=== PATIENT | male | born 1940 | race Caucasian/White ===

== ENCOUNTER 2017-01-15 10:44 | Inpatient (IN) | payer MEDICARE ==
[2017-01-15] MEDS ORDERED: Morphine INJ* 2 MG/ML 1 ML SYRINGE IM ONE (12:00)
[2017-01-15] MEDS ORDERED: Acetaminophen TAB* 325 MG PO ONE (12:00)
[2017-01-15] MEDS ORDERED: Carbidopa/Levodop 25/100 MG TAB(*) PO ONE (13:00)
[2017-01-15] MEDS ORDERED: Pramipexole TAB* 0.125 MG PO ONE (13:00)
--- NOTE | 2017-01-15 13:19 | RAD ---
Indication: Right hip pain after fall. 2 views of the right hip and an AP view of the pelvis demonstrates degenerative changes of the right hip. Pelvic ring is intact. Multiple prostate seeds are noted. IMPRESSION: Degenerative changes of the right hip. Multiple prostate seeds are noted. No fracture is noted.
--- NOTE | 2017-01-15 13:20 | RAD ---
Indication: Right elbow pain and injury. 4 views of the right elbow demonstrates a transverse fracture with distraction of the olecranon process. The fracture appears to be moderately comminuted. Moderate-sized joint effusion is noted. IMPRESSION: Distracted comminuted fracture of olecranon process of the ulna. Moderate-sized joint effusion is noted.
--- NOTE | 2017-01-15 14:35 | ED ---
Lower Extremity - HPI Summary HPI Summary: 76 y/o male with h/o parkinsons fell while carrying groceries into his home. Patient states legs froze, and he was unable to keep balance. No LOC, lightheaded, dizziness prior or after incident. patient states fell onto right hip and right elbow, immediate pain, unable to stand, EMS was called and taken to [facility] [place]. C/O right elbow pain, right handed. no numbness, tingling. - History of Current Complaint Chief Complaint: EDExtremityUpper Stated Complaint: FALL Time Seen by Provider: 01/15/17 11:50 Hx Obtained From: Patient Mechanism Of Injury: Fall From A Standing Position Onset of Pain: Immediate Onset/Duration: Minutes Severity Initially: Moderate Severity Currently: Moderate Pain Intensity: 4 Pain Scale Used: 0-10 Numeric - Allergies/Home Medications Allergies/Adverse Reactions: Allergies Allergy/AdvReac Type Severity Reaction Status Date / Time No Known Allergies Allergy Verified 05/16/16 15:11 Home Medications: Home Medications Carbidopa/Levodop 25/100 MG(*) 2.5 tab PO TID 01/15/17 [History Confirmed ] Pramipexole Dihydrochloride [Pramipexole Dihydrochlori] 3 tab PO TID 01/15/17 [ History Confirmed 01/15/17] PMH/Surg Hx/FS Hx/Imm Hx Previously Healthy: No - parkinsons Infectious Disease History: Denies: Traveled Outside the [place] in Last 30 Days - Social History Alcohol Use: None Substance Use Type: Reports: None Smoking Status (MU): Never Smoked Tobacco Review of Systems Constitutional: Negative Eyes: Negative ENT: Negative Cardiovascular: Negative Respiratory: Negative Gastrointestinal: Negative Genitourinary: Negative Positive: Arthralgia, Myalgia, Decreased ROM, Edema - right elbow Skin: Negative Neurological: Negative Psychological: Normal All Other Systems Reviewed And Are Negative: Yes Physical Exam Triage Information Reviewed: Yes Vital Signs On Initial Exam: Initial Vitals Temp Pulse Resp BP Pulse Ox 98.6 F 68 18 145/76 98 01/15/17 10:47 01/15/17 10:47 01/15/17 10:47 01/15/17 10:47 01/15/17 10:47 Vital Signs Reviewed: Yes Appearance: Positive: Well-Appearing, Pain Distress - mild to moderate with movement, none at rest Skin: Positive: Warm, Skin Color Reflects Adequate Perfusion Head/Face: Positive: Normal Head/Face Inspection Eyes: Positive: Normal, EOMI, OSBALDO, Conjunctiva Clear Neck: Positive: Supple, Nontender, No Lymphadenopathy Respiratory/Lung Sounds: Positive: Clear to Auscultation, Breath Sounds Present Cardiovascular: Positive: Normal, RRR, Pulses are Symmetrical in both Upper and Lower Extremities - rad/ ulnar, PT, DP 2+ b/l Abdomen Description: Positive: Nontender, No Organomegaly, Soft Musculoskeletal: Positive: Other - neg homans b/l, Right hip with tenderness to palpation over greater troch region, no bruising/ swelling. ROM to 30 flexion without pain, no pain with internal rotation or external rotation. not shortened. Neurological: Positive: Normal, Sensory/Motor Intact, Alert, Oriented to Person Place, Time, CN Intact II-III, Facial Symmetry, Speech Normal Diagnostics - Vital Signs Vital Signs Temp Pulse Resp BP Pulse Ox 01/15/17 13:11 62 99 01/15/17 13:10 130/68 01/15/17 12:08 20 01/15/17 10:50 98.6 F 67 20 145/76 97 01/15/17 10:47 98.6 F 68 18 145/76 98 - Laboratory Lab Statement: Any lab studies that have been ordered have been reviewed, and results considered in the medical decision making process. Lower Extremity Course/Dx - Course Course Of Treatment: X-ray- + for ulna fracture, Dr. Pelaez notified, likely OR tomorrow. neg hip x-ray. admit under ortho. - Diagnoses Differential Diagnosis/HQI/PQRI: Positive: Contusion, Dislocation, Fracture ( Closed), Fracture (Open), Infection, Phlebitis Provider Diagnoses: Ulnar fracture Discharge - Discharge Plan Condition: Stable Disposition: ADMITTED TO [facility]
[2017-01-15] MEDS ORDERED: NS 0.9% 1000 ML* 1,000 ML IV SCH (14:45)
[2017-01-15] MEDS ORDERED: Acetaminophen TAB* 325 MG PO PRN (14:45)
[2017-01-15] MEDS ORDERED: HYDROcodone/ACETAMIN 5-325 MG* 1 TAB PO PRN (14:46)
[2017-01-15] MEDS ORDERED: Morphine INJ* 2 MG/ML 1 ML SYRINGE IV PRN (14:46)
[2017-01-15] MEDS: Carbidopa/Levodop 25/100 MG TAB(*) PO SCH (16:51)
[2017-01-15] MEDS: Pramipexole TAB* 0.125 MG PO SCH (16:52)
[2017-01-15] MEDS: Docusate CAP* 100 MG PO SCH (20:04)
[2017-01-16] MEDS ORDERED: NS 0.9% 1000 ML* 1,000 ML IV SCH
[2017-01-16] MEDS: Carbidopa/Levodop 25/100 MG TAB(*) PO SCH ×3 (07:46→17:41)
[2017-01-16] MEDS: Docusate CAP* 100 MG PO SCH ×2 (07:46→20:27)
[2017-01-16] MEDS: Pramipexole TAB* 0.125 MG PO SCH ×3 (07:46→17:42)
--- NOTE | 2017-01-16 09:04 | RAD ---
INDICATION: Fall. Right hip pain. COMPARISON: Right hip January 15, 2017 TECHNIQUE: Noncontrast axial source images were obtained from the iliac crests through the symphysis pubis. FINDINGS: There is an essentially nondisplaced fracture of the greater tuberosity. There are subtle changes which suggest trabecular impaction involving the femoral neck extending into the intertrochanteric region. No other significant bony findings are noted. There are radium seed implants. No free fluid or adenopathy is seen. There is a right inguinal hernia containing small bowel. There are no findings of obstruction or strangulation. The superficial soft tissues appear normal. The bladder appears normal. IMPRESSION: GREATER TROCHANTERIC FRACTURE RIGHT FEMUR. SUBTLE INCREASED DENSITY IN THE INTRATROCHANTERIC REGION SUGGESTS INTRATROCHANTERIC EXTENSION WITH TRABECULAR IMPACTION.
--- NOTE | 2017-01-16 09:10 | HP ---
DATE OF ADMISSION: 01/15/17 PRIMARY CARE PHYSICIAN: Dr. Diaz. HISTORY OF PRESENT ILLNESS: Mr. Cohen is a very pleasant 76-year-old gentleman who has had Parkinson's for about 20 years now. He was carrying some groceries into his home yesterday when he missed a step and fell against his right side. He was admitted through the emergency room with right groin pain, and a displaced fracture of his right olecranon which is closed. The patient this morning is still complaining of right hip pain which he points to the anterior groin and proximal thigh. The elbow is not as painful, but it is well splinted. He's had no previous falls to this extent. He's treated for his Parkinson's by a neurologist at the [facility], who is also on staff at [facility]. PAST MEDICAL HISTORY: He has had previous prostate cancer, intracapsular, which was treated with radionuclide seeds. He claims to have been disease free. MEDICATIONS: Include 1. Carbidopa/levodopa 25/100. 2. Mirapex 0.375 3x a day. 3. He's currently on some pain medication and acetaminophen. SOCIAL HISTORY: Mr. Cohen lives at home with his , who is in good health. 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 He does not smoke, and tries to exercise. REVIEW OF SYSTEMS: Mr. Cohen has been feeling well. He's had no recent fevers, chills, headache issues, no chest pain, shortness of breath. Has had no abdominal distress or GI issues. No depression or anxiety. PHYSICAL EXAMINATION GENERAL: Mr. Cohen is a pleasant and fit-appearing 76-year-old gentleman. He 's conversant. There's no interruption in his speech pattern. His mood is appropriate. HEENT: He's partially edentulous. He has a clear oropharynx. His neck is supple. CHEST: Exam is clear to auscultation. CARDIAC: Exam shows prominent heart rate and heart sounds without extra sounds noted. ABDOMEN: Flat, soft, non-tender. EXTREMITIES: Exam shows him to have no pain at the right hip with logroll, but when I begin to flex the hip passively, he has pain at the groin. He has some tenderness laterally near the trochanter. He does not have any deformity of the lower leg; it's not shortened or rotated, and he has a warm, sensate foot and is able to dorsiflex well. The right elbow is wrapped and splinted with good range of motion of the MCP joints. He has intact sensation of the hand, and the hand is warm. IMAGING: His radiographs on admission show a displaced olecranon fracture of the right elbow which is now splinted; this will need to be fixed internally. The right hip radiographs, to my reading, show a minimally displaced greater trochanter fracture. I do not see any disruption in the trabeculae of the femoral neck. We will attempt to get a CT scan or MRI of the right hip area to further delineate the possibility of an occult fracture, but I attribute his right hip pain currently to a greater trochanter fracture. The right elbow is scheduled to be treated in the near future. He's NPO at this time. I've had a thorough discussion with Mr. Cohen about his status. [id number]/[facility] #: [id number] RAMY
--- NOTE | 2017-01-16 09:14 | CONSULT ---
Consult Consult: HOSPITALIST CONSULT: Requesting Provider: Dr. Pelaez Reason for Consultation: Pre-op evaluation HPI: Mr Cohen is a 76 yo M who has a long standing h/o Parkinson's disease who presented to the ER after sustaining a mechanical fall. He states he left his cane in the entranceway to his living room and was carrying bags of groceries when he suddenly "froze" and fell. He had immediate pain in his R arm and states that when he moved his arm he felt the "bones moving." He denies any LOC. No chest pain. Currently his arm is feeling well but he has pain in his R hip. PMHx: Parkinson's Disease, prostate cancer PSHx: Radioactive seeds placed for prostate ca All: NKDA Med: occuvite 1 tab daily, omeprazole 20mg daily, pramipexole 0.375mg TID, sinemet 25/100- 2.5 tab po TID Current in hopsital medications noted FamHx: mom at the age of 94 of "old age," dad at 65-? cancer SocHx: life long non-smoker, no EtOH, he worked in small business sales, he is , his Destiney is his HCP ROS: No fever, chills, anorexia, chest pain, SOB, cough, abdominal pain, N/V. He has intermittent diarrhea/constipation. No dysuria. He has chronic issues with ambulation secondary to his Parkinson's disease. PE: BP 130/60 HR 71 RR 16 T 98.0 O2 sat 94% RA gen: elderly male sitting up in bed, NAD HEENT: pupils are round, EOMI, oropharynx is clear, oral mucosa is moist Card: nl S1S2 RRR, no murmurs, no LE edema Lungs: CTA B/L Abd: BS+ soft, NT, ND Musculoskeletal: R arm in EVITA wrap with elbow held in flexion Neuro: CN II-XII grossly intact, strength testing not performed due to fractured R elbow and R hip pain Psych: A+Ox3 Labs: none A/P: Mr Cohen is a 76 yo relatively healthy M with a PMHx significant for Parkinson's disease who presented to the ER with c/o fall and R elbow pain and was found to have a distracted, comminuted fracture of the R olecranon process. 1. Olecranon process fracture: plan is for the patient to go to the OR this AM for pinning. EKG to be done prior to going. He appears to be a low cardiac risk patient for a low risk procedure. He is able to climb a flight of stairs ( though somewhat difficultly secondary to his Parkinson's) without any chest pain. He also states that he and his walk nightly and he has no chest pain with that activity. No further cardiac testing to be done prior to surgery. I have ordered labs including CBC, BMP and INR to be done. Management post-op per orthopedics. 2. R greater trochanter fracture with intertrochanteric extension: will alert orthopedics to this new finding. Continue pain control for now. 3. Parkinson's disease: Continue pramipexole and sinemet at his usual dose/ frequency. 4. DVT-P: SQ heparin should start post-op per orthopedics. 5. Full code
[2017-01-16 10:03] LABS: Hematocrit 34 % (42-52); Hemoglobin 11.7 g/dl (14.0-18.0); Mean Corpuscular HGB Conc 34 g/dl (31-36); Mean Corpuscular Hemoglobin 31 pg (27-31); Mean Corpuscular Volume 90 fL (80-94); Mean Platelet Volume 9 um3 (7.4-10.4); Red Blood Count 3.84 10^6/ul (4.0-5.4); Red Cell Distribution Width 14 % (10.5-15); White Blood Count 7.1 10^3/ul (3.5-10.8)
[2017-01-16 10:18] LABS: BUN/Creatinine Ratio 22.5 (8-20); Calcium 8.6 mg/dL (8.6-10.3); EGFR Non-African American 107.3 (>60); Potassium 3.8 mmol/L (3.5-5.0)
[2017-01-16] MEDS ORDERED: Dexamethasone IV* 4 MG/ML 1 ML (4 MG) IV SLOW PU ONE (10:33)
[2017-01-16] MEDS ORDERED: Famotidine IV* 10 MG/ML 2 ML (20 mg) IV ONE (10:33)
[2017-01-16] MEDS ORDERED: Buffered Lidocaine 1% SYRIN* 3 ML/SYR SYRINGE INTRADERM ONE (10:33)
[2017-01-16] MEDS ORDERED: Famotidine IV* 10 MG/ML 2 ML (20 mg) ONE (10:36)
[2017-01-16] MEDS ORDERED: Dexamethasone IV* 4 MG/ML 1 ML (4 MG) ONE (10:36)
[2017-01-16] MEDS ORDERED: ceFAZolin 2 GM PREMIX(*) 2 GM/50 ML BAG IVPB ONE (10:36)
[2017-01-16] MEDS ORDERED: fentaNYL* 50 MCG/ML 2 ML VIAL (100 MCG VIAL) ONE (12:52)
[2017-01-16] MEDS ORDERED: HYDROmorphone* 1 MG/ML 1 ML SYR ONE ×2 (12:52→14:51)
[2017-01-16] MEDS ORDERED: Midazolam* 1 MG/ML 2 ML VIAL (2 MG) ONE (12:52)
[2017-01-16] MEDS ORDERED: Lidocaine 2% PF * 5 ML VIAL ONE (13:02)
[2017-01-16] MEDS ORDERED: Ketorolac INJ* 30 MG/ML 1 ML VIAL ONE (13:02)
[2017-01-16] MEDS ORDERED: Bupivacaine 0.5% W/EPI SDV* 30 ML VIAL ONE (13:02)
[2017-01-16] MEDS ORDERED: Ondansetron INJ* 2 MG/ML VIAL ONE (13:02)
[2017-01-16] MEDS ORDERED: Propofol* 10 MG/ML 20 ML BTL IV PUSH ONE (13:02)
[2017-01-16] MEDS ORDERED: Bupivacaine 0.25% EPI 200,000* 30 ML SDV ONE (14:25)
[2017-01-16] MEDS ORDERED: Desflurane* 240 ML INH ONE (15:02)
[2017-01-16] MEDS ORDERED: Sevoflurane* 1 BTL ONE (15:02)
[2017-01-16] MEDS ORDERED: Meperidine SYRINGE* 50 MG/ML ONE (15:15)
[2017-01-16] MEDS ORDERED: Lidocaine PATCH 5%* 1 PATCH TRANSDERM PRN (15:57)
--- NOTE | 2017-01-16 16:24 | RAD ---
INDICATION: Right elbow fracture operative reduction and internal fixation. COMPARISON: Comparison is made with a prior x-ray study of the right elbow from January 15, 2017. TECHNIQUE: 10.8 seconds of intermitted fluoroscopic guidance were provided and 2 spot films of the right elbow were obtained in the operating room. FINDINGS: There is a wire suture and 2 K wires spanning the fracture fragments of the olecranon process of the ulna which appear to be in normal alignment. IMPRESSION: Intraoperative control films. CPT II Codes: 6045F
[2017-01-16] MEDS ORDERED: Ondansetron INJ* 2 MG/ML VIAL IV PRN (16:47)
[2017-01-16] MEDS ORDERED: fentaNYL* 50 MCG/ML 2 ML VIAL (100 MCG VIAL) IV PRN (16:47)
[2017-01-16] MEDS: Lidocaine Patch REMOVE* 1 NOTE MISC SCH (20:29)
--- NOTE | 2017-01-17 06:33 | OP ---
DATE OF OPERATION: 01/16/17 - ROOM #[id number] DATE OF : 36 SURGEON: Samuel Vasquez MD CLERICAL INVESTIGATOR: JAMIL Chatterjee ANESTHESIOLOGIST: Marvin Tom MD ANESTHESIA: Regional and general. PRE-OP DIAGNOSIS: Displaced right olecranon fracture. POST-OP DIAGNOSIS: Displaced right olecranon fracture. OPERATIVE PROCEDURE: ORIF, right olecranon fracture with tension band technique. ESTIMATED BLOOD LOSS: Less than 50 cc. COMPLICATIONS: None. INDICATIONS: Summary: Mr. Cohen is a 76-year-old male who had fallen at home yesterday. He had sustained a nondisplaced fracture to his right greater trochanter, but also a displaced fracture to his left olecranon. He had come in with Dr. Pelaez's call yesterday, but my OR cases were done at 1 and there was OR time with an anesthesiologist available; therefore, offer was made to Mr. Cohen and Dr. Pelaez and they were both quite alright with my proceeding with an ORIF of his right elbow. Risks of surgery such as infection, scar formation, stiffness, painful hardware which would necessitate removal, and ulnar nerve injury were some of the risks discussed. He had wished to proceed. DESCRIPTION OF PROCEDURE: The patient had a scalene block placed in the holding area and was brought to the OR. LMA was then placed. He was then rolled up into a sloppy lateral position on the garnica bag and the arm palomino was placed so that I had nice exposure to the back side of the elbow. Right arm was prepped and then draped. JAMIL Chatterjee, was present for the positioning, approach, reduction, holding of the parts, and the fixation and the case could not have been done without her. Skin over the incisional area was infiltrated using 0.25% Marcaine with epinephrine and skin incision was made. Hematoma was almost immediately punctured with this and quite a bit of blood came out. Bulb syringe as well as curettes were used to clean out the hematoma and with just cleaning out the hematoma, fracture was already easily palpable. A little dissection of anconeus had to be performed to get nice exposure of the this and to allow for the ends of the fracture to be scrapped. The wound was copiously irrigated again and closed reduction was then performed. C-arm was brought in. Alignment was good. Unfortunately, with the first placement of the K-wires, the clamp had slipped a little bit and the alignment was not prefect. Wires were taken out and clamp was readjusted and this time, 2 K-wires were passed and the clamp did not shift. C-arm was brought in and alignment appeared quite good. A 2 mm drill was used a little bit distally on the ulnar to make a hole on the medial and lateral side to allow for a 16-gauge wire to pass. Once that wire was finally passed, this was brought up and tied into a [id number]. When I tried to bend that over so that I could tuck it under the medial musculature, one of the wires broke. There was still enough of the coil such that I was able to re-twist them back together for about two and a half turns and then this was tamped down. Portions of the K-wires sticking out were then cut, bent , and tamped in. C-arm was gain brought in and final pictures were saved. Anconeus and muscle was repaired over the wires and the wires could not be palpated. With flexion and extension of the elbow, there was no gapping at all at the fracture site. Subcutaneous tissues were approximated with 2- 0 Vicryl and skin was closed using lacho. Sterile dressing and a splint were applied in the OR. The patient had the LMA removed in the OR and was stable on transfer to the recovery room. He may fully wait there with the splint on as he has troubles with moving the leg because of his Parkinson's as well as the greater trochanteric fracture. Once he is in a seated position doing activities , eating, and other torpedoman's mate activities; he may come out of the splint and range the elbow. [id number]/[facility] #: [id number] [facility]
[2017-01-17] MEDS: Carbidopa/Levodop 25/100 MG TAB(*) PO SCH ×3 (07:48→16:56)
[2017-01-17] MEDS: Docusate CAP* 100 MG PO SCH ×2 (07:48→20:57)
[2017-01-17] MEDS: Pramipexole TAB* 0.125 MG PO SCH ×3 (07:49→16:56)
--- NOTE | 2017-01-17 09:02 | PN ---
Progress Note - Progress Note SOAP: Subjective: []Patient seen at bedside. Pain well managed in right elbow and right greater troch area. He wants to avoid narcotics as much as possible due to underlying balance issues from his Parkinson's. Objective: [] Vital Signs Temp 97.8 F 01/17/17 07:26 Pulse 70 01/17/17 07:26 Resp 18 01/17/17 08:00 BP 135/67 01/17/17 07:26 Pulse Ox 99 01/17/17 07:26 Intake & Output 01/16/17 01/17/17 01/17/17 18:59 06:59 18:59 Intake Total 2465 240 Output Total 350 1150 0 Balance 2115 -910 0 Intake: IV Fluids 1999 LR 2000 Oral 465 240 Output: Urine 350 1150 0 Laboratory Results - last 24 hr 01/16/17 01/16/17 01/16/17 09:45 09:45 09:45 WBC 7.1 RBC 3.84 L Hgb 11.7 L Hct 34 L MCV 90 MCH 31 MCHC 34 RDW 14 Plt Count 120 L MPV 9 INR (Anticoag Therapy) 1.07 Sodium 135 Potassium 3.8 Chloride 105 Carbon Dioxide 26 Anion Gap 4 BUN 16 Creatinine 0.71 Est GFR ( Amer) 138.0 Est GFR (Non-Af Amer) 107.3 BUN/Creatinine Ratio 22.5 H Glucose 129 H Calcium 8.6 Right elbow splint is dry and intact full sensation in all digits with active movement of the same mild right hand and finger edema mild tenderness right G troch region neuro intact right LE, active DF/PF calf non tender and soft Assessment: []s/p ORIF right olecrenon fracture POD #1 Right greater trochanter fracture- conservative management Plan: []PT/OT NWB right UE WBAT RLE RUE elbow splint to reamin until Wed, then may be removed while at rest, otherwise on for protection Home when deemed safe with ambulation
[2017-01-17] MEDS: Lidocaine Patch REMOVE* 1 NOTE MISC SCH (20:57)
[2017-01-18] MEDS: Carbidopa/Levodop 25/100 MG TAB(*) PO SCH ×3 (07:59→17:06)
[2017-01-18] MEDS: Pramipexole TAB* 0.125 MG PO SCH ×3 (08:01→17:05)
[2017-01-18] MEDS: Docusate CAP* 100 MG PO SCH ×2 (08:02→20:04)
[2017-01-18] MEDS: Lidocaine Patch REMOVE* 1 NOTE MISC SCH (20:04)
[2017-01-19] MEDS: Pramipexole TAB* 0.125 MG PO SCH ×3 (08:26→16:59)
[2017-01-19] MEDS: Docusate CAP* 100 MG PO SCH ×2 (08:26→21:20)
[2017-01-19] MEDS: Carbidopa/Levodop 25/100 MG TAB(*) PO SCH ×3 (08:26→16:59)
--- NOTE | 2017-01-19 12:30 | PN ---
Progress Note - Progress Note SOAP: Subjective: []Patient seen OOB in chair. Feels he is making daily progress with his ambulation. He was denied PMRU rehab so is waiting for a bed at the [facility] for rehab. Objective: [] Vital Signs Temp 98.0 F 01/19/17 11:51 Pulse 74 01/19/17 11:51 Resp 16 01/19/17 12:10 BP 120/63 01/19/17 11:51 Pulse Ox 97 01/19/17 11:51 Intake & Output 01/18/17 01/19/17 01/19/17 18:59 06:59 18:59 Intake Total 550 1475 Output Total 775 750 300 Balance -225 725 -300 Intake: Oral 550 1475 Output: Urine 775 750 300 Other: Estimated Void Medium Estimated Stool Amount Medium Right hand moderate edema, moving digits adequately with full sensation Dressings taken down Right elbow, no drainage, wound benign New ABD placed under current EVITA RLE NVI, calf NT and soft Assessment: []s/p ORIF right olecrenon fracture POD #3 Greater trochanter fx right hip Plan: []NWB RUE, splint off while sedentary, on for ambulation WBAT RLE Await bed offer at [facility]- Stable for discharge Follow up 10-14 days in office with Dr. Vasquez
[2017-01-19] MEDS: Lidocaine Patch REMOVE* 1 NOTE MISC SCH (21:20)
[2017-01-20] MEDS: Pramipexole TAB* 0.125 MG PO SCH ×2 (08:09→11:36)
[2017-01-20] MEDS: Carbidopa/Levodop 25/100 MG TAB(*) PO SCH ×2 (08:10→11:36)
[2017-01-20] MEDS: Docusate CAP* 100 MG PO SCH (08:10)
--- NOTE | 2017-01-20 11:44 | PN ---
Progress Note - Progress Note SOAP: Subjective: Pt is doing well. His pain is controlled. He has some N/T in his hand that improved with therapy. He denies F/C, CP, SOB or calf pain. VSS overnight Objective: PE- 76 y/O M NAD, sitting in chair Right Upper extremity- moderate edema, moving digits adequately with full sensation, + 2 DP pulse, sensation intact RLE- skin intact, able F/E knee, calf NT and soft, + 2 DP pulse, sensation intact Vital Signs Temp Pulse Resp BP Pulse Ox 98.0 F 65 16 148/66 95 01/20/17 07:28 01/20/17 07:28 01/20/17 08:13 01/20/17 07:28 01/20/17 07:28 Assessment: s/p ORIF right olecrenon fracture POD #3 Greater trochanter fx right hip Plan: DC to [facility] NWB RUE, splint off while sedentary, on for ambulation WBAT RLE Follow up 10-14 days in office with Dr. Vasquez
[2017-01-20 12:20] VITALS: BP 117/53
--- NOTE | 2017-01-21 00:03 | DS ---
DISCHARGE SUMMARY: DATE OF ADMISSION: 01/15/17 DATE OF DISCHARGE: 01/20/17 ATTENDING PHYSICIAN: González Pelaez MD (DICTATED BY MARCIA MACHADO) PROVIDERS: 1. González Pelaez MD 2. Samuel Vasquez MD ADMITTING DIAGNOSIS: Right olecranon fracture and greater trochanteric fracture of the right hip. SECONDARY DIAGNOSES: 1. Prostate cancer. 2. Parkinson disease. PROCEDURE: ORIF of the right olecranon fracture. CONSULTATIONS: Medicine, Occupational Therapy, Physical Therapy. HISTORY OF PRESENT ILLNESS: Mr. Cohen is a 76-year-old gentleman with a history of Parkinson disease who was carrying groceries and had a fall on his right side. He was seen in the ER and was diagnosed with a displaced fracture of the right olecranon, it was closed and a right greater trochanteric fracture of the right hip. The hip was treated nonoperatively, but he failed conservative measures and therefore, he was treated surgically with an ORIF of the right olecranon by Dr. Vasquez on 01/16/17. HOSPITAL COURSE: The patient was admitted to [facility] on . He was then taken to the operating room on 01/16/[address] Vasquez, who performed an ORIF of the right olecranon with no complications. He recovered briefly in the postanesthesia care unit and was then transferred to the short stay surgical unit in stable condition. He advanced to a regular diet without difficulty, and his pain was controlled with oral pain medication. He was restarted on his home medications. His labs and vitals remained stable. He was weightbearing as tolerated on the right lower extremity and was nonweightbearing on the right upper extremity. He advanced appropriately with physical therapy and occupational therapy. DVT prophylaxis was managed with subcu heparin. By postop day 4, the patient was orthopedically and medically stable for discharge to [facility]. PHYSICAL EXAMINATION: General: A 76-year-old well-developed, well-nourished male, in no acute distress. Alert and oriented x3. Appropriate mood and affect. Vital Signs: Temperature 97.9, pulse 78, respiratory rate 20, blood pressure 117/53. Extremities: Right upper extremity, moderate edema of the hand. Full range of motion of the wrist and hand. +2 dorsalis pedis pulse. Sensation intact to light touch distally. Right lower extremity, skin is intact. Able to flex and extend the knee. Calf is soft and nontender. Posterior dorsalis pedis pulse. Sensation intact. DISCHARGE CONDITION: Stable. DISCHARGE MEDICATIONS: Home medications continued on discharge to include: 1. Omeprazole 20 mg capsule by mouth daily. 2. Carbidopa/levodopa 25/100 mg 2.5 tablets by mouth 3 times a day. 3. Pramipexole dihydrochloride 0.125 mg 3 tabs by mouth 3 times a day. New medication on discharge: 1. Tylenol by mouth every 4 as needed for pain. DISCHARGE INSTRUCTIONS: The patient may shower and get the wound wet with ____ _ water. He should not submerge it in the bathtub. He may apply light dressings with ABDs and an Brandon on the elbow. He is nonweightbearing of the right elbow or wrist. He is weightbearing as tolerated on the right lower extremity. He should wear the splint on the elbow during ambulation or PT exercises. Otherwise, it may be removed when he is sedentary. He was instructed to go to the ER if he develops chest pain, shortness of breath, calf pain, or fever greater than 101.5. He will follow up with Dr. Vasquez in 2 weeks. MARCIA MACHADO [id number]/[facility] #: [id number] [facility]
== END 2017-01-20 13:55 | DRG 510 ==
LOC: ED 10:44 → SSU 13:26
PROVIDERS: ADMIT Orthopaedic Surgery; ATTEND Orthopaedic Surgery
PROC: 0PSK04Z Reposition Right Ulna with Internal Fixation Device, Open Approach (ICD-10-PCS; principal; 2017-01-16 12:00)
DX: S52.021A Displaced fracture of olecranon process without intraarticular extension of right ulna, initial encounter for closed fracture (principal); S72.114A Nondisplaced fracture of greater trochanter of right femur, initial encounter for closed fracture; G20 Parkinson's disease; W18.30XA Fall on same level, unspecified, initial encounter; Z91.81 History of falling; Y93.89 Activity, other specified; Y92.9 Unspecified place or not applicable; Z85.46 Personal history of malignant neoplasm of prostate; Z79.899 Other long term (current) drug therapy
CPT/HCPCS: 36415; 72192; 76000; 80048; 85027; 85610; 93005; 94760; A9270-GY; C1713; C1776; J0690; J1100; J1170; J1885; J2250; J2270; J2405; J2704; J3010

== ENCOUNTER 2019-04-27 16:51 | Emergency (ER) | payer MEDICARE ==
--- OUTSIDE RECORDS SUMMARY | 2019-04-27 16:58 | XMS REPORT | Continuity of Care Document ---
:1940 External Reference #:[id number] Author Name Ernestine Argueta O.D. Address [address] [place] [address] Care Team Providers Name Role Phone Nona Diaz M.D. Primary Care Physician Unavailable Payers Date Identification Numbers Payment Provider Subscriber Policy Number: [id number] Medicare - [facility] Brad Cohen PayID: [id number] [address] [place] [address] Policy Number: [id number] [facility] Brad Cohen PayID: [id number] [address] [place] [address] Problems Active Problems Provider Date Dry skin Onset: Parkinson's disease Onset: History of malignant neoplasm of prostate Onset: Retinal drusen Ernestine Argueta O.D. Onset: 08/17/2015 Vitreous degeneration Ernestine Argueta O.D. Onset: 08/17/2015 Presence of intraocular lens Ernestine Argueta O.D. Onset: 08/17/2015 Nonexudative age-related macular Ernestine Argueta O.D. Onset: 02/17/2016 degeneration Degeneration of macula due to cyst, hole Ernestine Argueta O.D. Onset: 09/2015 or pseudohole Family History Date Family Member(s) Observation Comments Father No Current Problems Mother Glaucoma First Brother Glaucoma Social History Type Date Description Comments Sex Unknown Marital Status Legal Status: Occupation Sales self employed Work Status Retired ETOH Use Denies alcohol use Recreational Drug Use Denies Drug Use Tobacco Use Start: Unknown Patient has never smoked Smoking Status Reviewed: 04/24/19 Patient has never smoked Allergies, Adverse Reactions, Alerts Description No Known Drug Allergies Medications Active Medications SIG Qnty Indications Ordering Provider Date Icaps Areds Formula 1 by mouth Ernestine Carmona 02/12/2016 Tablets twice a day Stockwin, O.D. Artificial Tears prn Ernestine Carmona 08/16/2015 0.1-0.3% Stockwin, O.D. Solution Carbidopa 2.5 tabs 3 * Unknown 25mg Tablets day Trihexyphenidyl HCL 0.5 2*day Unknown 2mg Tablets Pramipexole Katelyn Christiansen [employer] Dihydrochloride 0.125mg Tablets Vitamin D3 Unknown 1000Unit Capsules Procedures Date Code Description Status 04/04/2018 86437 Scanning Computerized Opthalmic Diagnostic Posterior Seg Completed Retina 04/04/2018 59231 Est Patient Comprehensive Exam Completed 10/02/2017 12675 Scanning Computerized Opthalmic Diagnostic Posterior Seg Completed Retina 10/02/2017 59775 Est Patient Comprehensive Exam Completed 03/31/2017 90847 Scanning Computerized Opthalmic Diagnostic Posterior Seg Completed Retina 03/31/2017 95156 Determination Of Refractive State Completed 03/31/2017 43188 Est Patient Comprehensive Exam Completed 08/25/2016 06273 Scanning Computerized Opthalmic Diagnostic Posterior Seg Completed Retina 08/25/2016 37111 Est Patient Comprehensive Exam Completed 02/17/2016 39094 Scanning Computerized Opthalmic Diagnostic Posterior Seg Completed Retina 02/17/2016 30519 Est Patient Comprehensive Exam Completed 08/17/2015 45244 Determination Of Refractive State Completed 08/17/2015 51035 Est Patient Comprehensive Exam Completed 07/30/2013 26894 Est Patient Comprehensive Exam Completed 07/16/2012 07852 Determination Of Refractive State Completed 07/16/2012 61193 Est Patient Comprehensive Exam Completed 07/15/2011 86374 Remove Secondary Cataract, Laser (Yag) Completed 07/08/2011 12173 Remove Secondary Cataract, Laser (Yag) Completed 06/20/2011 39828 Est Patient Comprehensive Exam Completed 01/25/2010 08228 Est Patient Comprehensive Exam Completed 12/01/2008 73581 Est Patient Comprehensive Exam Completed 05/02/2007 54172 Strabismus Surgery, Two Horizontal Muscles Completed 03/21/2007 95247 Extracapsular Cataract Extraction W/Intraocular Lens Completed 03/15/2007 41654 Ophthalmic Biometry Completed 03/14/2007 66538 Extracapsular Cataract Extraction W/Intraocular Lens Completed 03/08/2007 23456 Ophthalmic Biometry Completed 02/27/2007 88914 New Patient Comprehensive Exam Completed Encounters Type Date Location Provider Dx Diagnosis Office Visit 12/08/2008 Ernestine Leiva 373.12 Meibomitis 7:00p mandi PINEDA O.D. Office Visit 06/21/2007 Jose Leiva, 373.00 Blepharitis Unspec 9:00a mandi PINEDA M.D. Office Visit 04/26/2007 Jose Leiva, 378.10 Exotropia Unspec 3:30p mandi PINEDA M.D. Plan of Treatment 04/24/2019 - Ernestine Argueta O.D.H35.3131 Nonexudative age-related macular degeneration, bilateral, early dry stageComments:Smoking can increase the risk of developing or worsening any eye related disease, as well as affect your overall health. If you are a smoker, we strongly recommend that you quit.If you are not a smoker, we strongly recommend that you do not start. CONTINUE TO USE AREDS 2 CONTINUE TO CHECK AMSLER GRID 3 TIMES A WEEK/EACH EYE SEPARATELYFollow up:1 Year Follow Up OCT MAC You can expect to have your eyes dilated at your next visit. If Dr. Argueta orders any additional testing, it may require extra time. We recommend that you bring sunglasses, as dilation drops often make you light sensitive until they wear off. We always recommend you bring someone to drive you home if you are uncomfortable driving with your eyes dilated. If you have any questions before your next visit, feel free to call our office at .H35.008 Macular cyst, hole, or pseudohole, right eye
--- OUTSIDE RECORDS SUMMARY | 2019-04-27 16:58 | XMS REPORT | Continuity of Care Document ---
:1940 External Reference #:[id number] Author Name Ernestine Argueta O.D. Address [address] [place] [address] Care Team Providers Name Role Phone Nona Diaz M.D. Primary Care Physician Unavailable Payers Date Identification Numbers Payment Provider Subscriber Policy Number: [id number] Medicare - [facility] Brad Cohen PayID: [id number] [address] [place] [address] Policy Number: [id number] [facility] Brad Cohen PayID: [id number] [address] [place] [address] Problems Active Problems Provider Date Dry skin [...] 2*day Unknown 2mg Tablets Pramipexole Katelyn Christiansen [employer] Dihydrochloride 0.125mg Tablets Vitamin D3 Unknown 1000Unit Capsules Procedures Date Code Description Status 04/04/2018 91626 Scanning Computerized Opthalmic Diagnostic Posterior Seg Completed Retina 04/04/2018 87241 Est Patient Comprehensive Exam Completed 10/02/2017 21686 Scanning Computerized Opthalmic Diagnostic Posterior Seg Completed Retina 10/02/2017 44288 Est Patient Comprehensive Exam Completed 03/31/2017 38764 Scanning Computerized Opthalmic Diagnostic Posterior Seg Completed Retina 03/31/2017 46432 Determination Of Refractive State Completed 03/31/2017 50735 Est Patient Comprehensive Exam Completed 08/25/2016 17831 Scanning Computerized Opthalmic Diagnostic Posterior Seg Completed Retina 08/25/2016 24367 Est Patient Comprehensive Exam Completed 02/17/2016 05264 Scanning Computerized Opthalmic Diagnostic Posterior Seg Completed Retina 02/17/2016 12130 Est Patient Comprehensive Exam Completed 08/17/2015 93324 Determination Of Refractive State Completed 08/17/2015 69186 Est Patient Comprehensive Exam Completed 07/30/2013 63432 Est Patient Comprehensive Exam Completed 07/16/2012 61851 Determination Of Refractive State Completed 07/16/2012 85574 Est Patient Comprehensive Exam Completed 07/15/2011 58421 Remove Secondary Cataract, Laser (Yag) Completed 07/08/2011 70314 Remove Secondary Cataract, Laser (Yag) Completed 06/20/2011 57403 Est Patient Comprehensive Exam Completed 01/25/2010 27020 Est Patient Comprehensive Exam Completed 12/01/2008 65618 Est Patient Comprehensive Exam Completed 05/02/2007 89562 Strabismus Surgery, Two Horizontal Muscles Completed 03/21/2007 52243 Extracapsular Cataract Extraction W/Intraocular Lens Completed 03/15/2007 22942 Ophthalmic Biometry Completed 03/14/2007 55947 Extracapsular Cataract Extraction W/Intraocular Lens Completed 03/08/2007 63485 Ophthalmic Biometry Completed 02/27/2007 35915 New Patient Comprehensive Exam Completed Encounters Type Date Location Provider Dx Diagnosis Office Visit 12/08/2008 Ernestine Leiva 373.12 Meibomitis 7:00p mandi PINEDA O.D. Office Visit 06/21/2007 Jose Leiva, 373.00 Blepharitis Unspec 9:00a mandi PINEDA M.D. Office Visit 04/26/2007 Jose Leiva, 378.10 Exotropia Unspec 3:30p mandi PINEDA M.D. Plan of Treatment Future Appointment(s):04/23/2020 11:45 am - Ernestine Argueta O.D. at Jose Arora MD, 04/24/2019 - Ernestine Argueta O.D.H35.3131 Nonexudative age- related macular degeneration, bilateral, early dry stageComments:Smoking can [...] feel free to call our office at .H35.341 Macular cyst, hole, or pseudohole, right eye
--- NOTE | 2019-04-27 17:20 | ED ---
Adult Trauma - HPI Summary HPI Summary: The pt is a 78 yr old male [facility]/o abd and chest pain after falling down 1 day [employer]. He was walking in his garden when he tripped over a silk screen printer machine and fell down, landing on his abd. He rates his current pain severity a 2/10 and describes it as constant. No alleviating factors noted. He mentions that deep breaths and movement aggravate his pain. He denies any SOB or N/V. He has Hx of right elbow Fx. - History of Current Complaint Chief Complaint: EDFall Stated Complaint: FALL PER PT Time Seen by Provider: 04/27/19 17:11 Hx Obtained From: Patient Mechanism of Injury: Fall Loss of Consciousness: no loss of consciousness Onset/Duration: Started Days Ago, Still Present Onset of Pain: Post Accident Onset Severity: Mild Current Severity: Mild Pain Intensity: 2 Pain Scale Used: 0-10 Numeric Location: Chest, Abdomen/Pelvis Aggravating Factor(s): Movement, Deep Breaths Alleviating Factor(s): Nothing Associated Signs & Symptoms: Positive: Chest Pain, Abdominal Pain, Other: - positive - loss of appetite. Negative: Nausea/Vomiting, Loss of Consciousness - Additional Pertinent History Primary Care Physician: [id number] - Allergy/Home Medications Allergies/Adverse Reactions: Allergies Allergy/AdvReac Type Severity Reaction Status Date / Time No Known Allergies Allergy Verified 05/16/16 15:11 Home Medications: Home Medications Aspirin 81 mg PO TID 04/27/19 [History Confirmed 04/27/19] PMH/Surg Hx/FS Hx/Imm Hx History: Reports: Other Problems/Disorders - Prostate CA Musculoskeletal History: Reports: Other Musculoskeletal History - fx right elbow Sensory History: Denies: Hx Contacts or Glasses, Hx Legally Blind, Hx Deafness, Hx Hearing Aid Opthamlomology History: Denies: Hx Contacts or Glasses, Hx Legally Blind EENT History: Denies: Hx Deafness Neurological History: Denies: Other Neuro Impairments/Disorders - parkinsons - Cancer History Cancer Type, Location and Year: Prostate - Surgical History Surgery Procedure, Year, and Place: Prostate bead implant Hx Anesthesia Reactions: No Infectious Disease History: No Infectious Disease History: Denies: Traveled Outside the [place] in Last 30 Days - Family History Known Family History: Positive: Hypertension - Social History Alcohol Use: None Substance Use Type: Reports: None Smoking Status (MU): Never Smoked Tobacco Review of Systems Positive: Other - positive - loss of appetite Positive: Chest Pain Positive: Abdominal Pain. Negative: Vomiting, Nausea Negative: Syncope All Other Systems Reviewed And Are Negative: Yes Physical Exam - Summary Physical Exam Summary: Appearance: The patient is well-nourished in no acute distress and in no acute pain. Skin: The skin is warm and dry and skin color reflects adequate perfusion. Abrasions of the right posterior axillary line and left shoulder blade. HEENT: The head is normocephalic and atraumatic. The pupils are equal and reactive. The conjunctivae are clear and without drainage. Nares are patent and without drainage. Mouth reveals moist mucous membranes and the throat is without erythema and exudate. The external ears are intact. The ear canals are patent and without drainage. The tympanic membranes are intact. Neck: The neck is supple with full range of motion and non-tender. There are no carotid bruits. There is no neck vein distension. Respiratory: Chest is non-tender. Lungs are clear to auscultation bilaterally. Decreased lung sounds on the right. Cardiovascular: Heart is regular rate and rhythm. There is no murmur or rub auscultated. There is no peripheral edema and pulses are symmetrical and equal. Abdomen: The abdomen is soft. Tenderness of the right abdomen. No rebound. There are normal bowel sounds heard in all four quadrants and there is no organomegaly palpated. Musculoskeletal: There is no back tenderness noted. Extremities are non-tender with full range of motion. There is good capillary refill. There is no peripheral edema or calf tenderness elicited. Neurological: Patient is alert and oriented to person, place and time. The patient has symmetrical motor strength in all four extremities. Cranial nerves are grossly intact. Deep tendon reflexes are symmetrical and equal in all four extremities. Psychiatric: The patient has an appropriate affect and does not exhibit any anxiety or depression. Triage Information Reviewed: Yes Vital Signs On Initial Exam: Initial Vitals Temp Pulse Resp BP Pulse Ox 99.2 F 96 18 110/52 92 04/27/19 16:53 04/27/19 16:53 04/27/19 16:53 04/27/19 16:53 04/27/19 16:53 Vital Signs Reviewed: Yes Diagnostics - Vital Signs Vital Signs Temp Pulse Resp BP Pulse Ox 04/27/19 16:53 99.2 F 96 18 110/52 92 - Laboratory Result Diagrams: 04/27/19 17:28 04/27/19 17:28 Lab Statement: Any lab studies that have been ordered have been reviewed, and results considered in the medical decision making process. Adult Trauma Course/Dx - Course Course Of Treatment: Mr. Cohen fell onto his lawnmower yesterday. He's had continued pain in his right side subsequently. He is nontoxic in appearance and his vitals revealed a borderline pulse ox of about 90 and borderline tachycardia of about high 90s. He was tender in the right upper quadrant as well as the lateral right chest wall. He did not have rebound. His hemoglobin and hematocrit are down slightly from November the last time it was tested. He is awaiting CT scan result at this time. - Diagnoses Provider Diagnoses: Internal injury of chest, abdomen and pelvis Discharge - Sign-Out/Discharge Documenting (check all that apply): Sign-Out Patient Signing out patient TO: Ghanshyam Liriano Receiving patient FROM: Ghanshyam Mayen Patient Received Moderate/Deep Sedation with Procedure: No - Discharge Plan Condition: Stable Referrals: Nona Diaz MD [Primary Care Provider] - - Billing Disposition and Condition Condition: STABLE - Attestation Statements Document Initiated by Scribe: Yes Documenting Scribe: Floyd Herring Provider For Whom Leanneibkumar is Documenting (Include Credential): Ghanshyam Mayen MD Scribe Attestation: Floyd Hyatt, scribed for Ghanshyam Mayen MD on 04/27/19 at 1849. Scribe Documentation Reviewed: Yes Provider Attestation: The documentation as recorded by the Floyd isbell accurately reflects the service I personally performed and the decisions made by me, Ghanshyam Mayen MD Status of Scribe Document: Viewed
[2019-04-27] MEDS ORDERED: HYDROcodone/ACETAMIN 5-325 MG* 1 TAB PO ONE (17:21)
[2019-04-27 17:36] LABS: ABS Lymphocytes 1.4 10^3/ul (1.0-4.8); ABS Monocytes 0.7 10^3/ul (0-0.8); ABS Neutrophils 6.4 10^3/ul (1.5-7.7); Eosinophil % 0.1 %; Hematocrit 34 % (42-52); Hemoglobin 11.8 g/dL (14.0-18.0); Lymphocyte % 16.7 %; Mean Corpuscular HGB Conc 35 g/dL (31-36); Mean Corpuscular Hemoglobin 30 pg (27-31); Mean Corpuscular Volume 87 fL (80-94); Mean Platelet Volume 8.1 fL (7.4-10.4); Platelet Count 156 10^3/uL (150-450); Red Cell Distribution Width 14 % (10-15); White Blood Count 8.5 10^3/uL (3.5-10.8)
[2019-04-27 17:54] LABS: ALT < 3 U/L (7-52); AST 14 U/L (13-39); Albumin 3.6 g/dL (3.2-5.2); Albumin/Globulin Ratio 1.1 (1-3); Alkaline Phosphatase 75 U/L (34-104); Anion Gap 9 mmol/L (2-11); BUN/Creatinine Ratio 20.2 (8-20); Blood Urea Nitrogen 19 mg/dL (6-24); CO2 Carbon Dioxide 23 mmol/L (22-32); Calcium 8.5 mg/dL (8.6-10.3); Chloride 98 mmol/L (101-111); EGFR African American 93.4 (>60); EGFR Non-African American 77.2 (>60); Globulin 3.2 g/dL (2-4); Glucose 134 mg/dL (70-100); Potassium 3.8 mmol/L (3.5-5.0); Sodium 130 mmol/L (135-145); Total Protein 6.8 g/dL (6.4-8.9)
--- NOTE | 2019-04-27 19:03 | ED ---
Progress - Progress Note Progress Note: This patient is a sign-out from Dr. Ghanshyam Mayen to Dr. Ghanshyam Liriano at 1900 on 04/27/19 at shift change pending CT C/A/P and disposition. - Results/Orders Results/Orders: CT C/A/P revealed 1. Right seventh rib fracture. 2. Small right pleural effusion. 3. Consolidation in the right middle lobe and right lower lobe representing atelectasis and/or pneumonia. 4. No acute posttraumatic findings in the abdomen and pelvis. Dr. Liriano has reviewed this radiology report. Re-Evaluation - Re-Evaluation First Eval Re-Evaluation Time: 19:36 Change: Improved Comment: Discussed results with patient. Patient reports feeling better with pain medication treatment in the ED. Patient is not on blood thinners and denies cough/fever but admits to congestion. He states he has difficulty taking deep breaths. I advised the patient to be aware of potential PNA symptoms and to keep his lung healthy while his rib heals. Patient will be discharged w dx of right 7th rib fracture and right lung atelectasis. Patient understands and agrees with this plan. Course/Dx - Course Course Of Treatment: This patient is a sign-out from Dr. Ghanshyam Mayen to Dr. Ghanshyam Liriano at 1900 on 04/27/19 at shift change pending CT C/A/P and disposition. CT C/A/P revealed 1. Right seventh rib fracture. 2. Small right pleural effusion. 3. Consolidation in the right middle lobe and right lower lobe representing atelectasis and/or pneumonia. 4. No acute posttraumatic findings in the abdomen and pelvis. Discussed results with patient. Patient reports feeling better with pain medication treatment in the ED. Patient is not on blood thinners and denies cough/fever but admits to congestion. He states he has difficulty taking deep breaths. I advised the patient to be aware of potential PNA symptoms and to keep his lung healthy while his rib heals. Patient will be discharged w dx of right 7th rib fracture and right lung atelectasis. Patient and were counselled at length as to the importance of pulmonary toilet in this context, as there are already signs of lung atelectasis consequent to the injury. His pain is much better after analgesics and he thinks he will be able to do incentive spirometry, coughing and deep breathing, and understands that if he develops productive cough, fever, malaise or other signs of illness that could indicate a pneumonia is developing and he should return here forthwith. Patient understands and agrees with this plan. - Diagnoses Provider Diagnoses: Fracture of seven ribs of right side, Atelectasis of right lung Discharge - Sign-Out/Discharge Documenting (check all that apply): Patient Departure - Discharge, Receiving Sign-Out Receiving patient FROM: Ghanshyam Mayen Patient Received Moderate/Deep Sedation with Procedure: No - Discharge Plan Condition: Stable Disposition: HOME Prescriptions: Hydrocodone/Acetaminophen [Vicodin 5-300 mg Tablet] 1 each PO Q4HR PRN #24 tablet MDD 4 PRN Reason: Pain - Moderate Patient Education Materials: Rib Fracture (ED) Referrals: Nona Diaz MD [Primary Care Provider] - 4 Days - Billing Disposition and Condition Condition: STABLE Disposition: Home - Attestation Statements Document Initiated by Dorenee: Yes Documenting Scribe: Talat Tian Provider For Whom Georgette is Documenting (Include Credential): Ghanshyam Liriano MD Scribe Attestation: Talat Hyatt, scribed for Ghanshyam Liriano MD on 04/28/19 at 0603. Scribe Documentation Reviewed: Yes Provider Attestation: The documentation as recorded by the Talat isbell accurately reflects the service I personally performed and the decisions made by me, Ghanshyam Liriano MD Status of Scribkumar Document: Viewed
[2019-04-27 21:11] VITALS: BP 119/79
== END 2019-04-27 21:09 | disposition home or self-care (01) ==
LOC: ED 16:51
DX: S22.31XA Fracture of one rib, right side, initial encounter for closed fracture (principal); J98.11 Atelectasis; J90 Pleural effusion, not elsewhere classified; W01.0XXA Fall on same level from slipping, tripping and stumbling without subsequent striking against object, initial encounter; Y92.007 Garden or yard of unspecified non-institutional (private) residence as the place of occurrence of the external cause; Z79.82 Long term (current) use of aspirin
CPT/HCPCS: 36415; 71250; 74176; 80053; 85025; 99283

== ENCOUNTER 2019-04-28 09:26 | Inpatient (IN) | payer MEDICARE ==
--- NOTE | 2019-04-28 09:55 | ED ---
Altered Mental Status - HPI Summary HPI Summary: Pt is an 78 y/o M presenting to the ED brought in by EMS for altered mental status. He was d/amira from [facility] last night with a rib fracture and a Hydrocodone Rx. The pt states that his reported he was mentally altered, and he is unsure if he took his Hydrocodone last night. He had a temperature of 100.6, and reported SOB, pain in his rib, and a cough. Sx worsened with movement and coughing. - History Of Current Complaint Chief Complaint: EDAltMentalStatus Stated Complaint: RIB PAIN PER EMS Time Seen by Provider: 04/28/19 09:38 Hx Obtained From: Patient Onset/Duration: Still Present, Gradually Timing: Constant, Lasting Hours Severity Initially: Mild Severity Currently: Mild Character: Confusion Aggravating Factor(s): Medication Change Alleviating Factor(s): Nothing Associated Signs And Symptoms: Positive: Fever - Allergies/Home Medications Allergies/Adverse Reactions: Allergies Allergy/AdvReac Type Severity Reaction Status Date / Time No Known Allergies Allergy Verified 05/16/16 15:11 Home Medications: Home Medications Trihexyphenidyl TAB* [Artane*] 0.5 tab PO TID 04/28/19 [History Confirmed ] PMH/Surg Hx/FS Hx/Imm Hx Previously Healthy: Yes History: Reports: Other Problems/Disorders - Prostate CA Musculoskeletal History: Reports: Other Musculoskeletal History - fx right elbow Sensory History: Denies: Hx Contacts or Glasses, Hx Legally Blind, Hx Deafness, Hx Hearing Aid Opthamlomology History: Denies: Hx Contacts or Glasses, Hx Legally Blind Neurological History: Denies: Other Neuro Impairments/Disorders - parkinsons - Cancer History Cancer Type, Location and Year: Prostate - Surgical History Surgery Procedure, Year, and Place: Prostate bead implant Hx Anesthesia Reactions: No Infectious Disease History: No Infectious Disease History: Denies: Traveled Outside the [place] in Last 30 Days - Family History Known Family History: Positive: Hypertension - Social History Alcohol Use: None Hx Substance Use: No Substance Use Type: Reports: None Hx Tobacco Use: No Smoking Status (MU): Never Smoked Tobacco Review of Systems Positive: Fever Positive: Shortness Of Breath, Cough Positive: Arthralgia Positive: Other - altered mental status All Other Systems Reviewed And Are Negative: Yes Physical Exam - Summary Physical Exam Summary: Appearance: The patient is well-nourished in no acute distress and in no acute pain. Skin: The skin is warm and dry and skin color reflects adequate perfusion. HEENT: The head is normocephalic and atraumatic. The pupils are equal and reactive. The conjunctivae are clear and without drainage. Nares are patent and without drainage. Mouth reveals moist mucous membranes and the throat is without erythema and exudate. The external ears are intact. The ear canals are patent and without drainage. The tympanic membranes are intact. Neck: The neck is supple with full range of motion and non-tender. There are no carotid bruits. There is no neck vein distension. Respiratory: Chest is non-tender. There are some crackles in the R lung. Cardiovascular: Heart is regular rate and rhythm. There is no murmur or rub auscultated. There is mild peripheral edema and pulses are symmetrical and equal. Abdomen: The abdomen is soft and non-tender. There are normal bowel sounds heard in all four quadrants and there is no organomegaly palpated. Musculoskeletal: There is no back tenderness noted. Extremities are non-tender with full range of motion. There is good capillary refill. There is mild peripheral edema. No calf tenderness elicited. Neurological: Patient is alert and oriented to person, place and time. The patient has symmetrical motor strength in all four extremities. Cranial nerves are grossly intact. Deep tendon reflexes are symmetrical and equal in all four extremities. Psychiatric: The patient has an appropriate affect and does not exhibit any anxiety or depression. Triage Information Reviewed: Yes Vital Signs On Initial Exam: Initial Vitals Temp Pulse Resp BP Pulse Ox 100.8 F 90 20 135/76 93 04/28/19 09:32 04/28/19 09:32 04/28/19 09:32 04/28/19 09:32 04/28/19 09:32 Vital Signs Reviewed: Yes Diagnostics - Vital Signs Vital Signs Temp Pulse Resp BP Pulse Ox 04/28/19 09:32 100.8 F 90 20 135/76 93 - Laboratory Result Diagrams: 04/28/19 10:10 04/28/19 10:10 Lab Statement: Any lab studies that have been ordered have been reviewed, and results considered in the medical decision making process. Altered Mental Statu Course/Dx - Course Course Of Treatment: Mr. Cohen was seen here yesterday after a trauma on Monday. He was noted to have a rib fracture and pleural effusion on the right. He was discharged home and returns today as his felt that he was confused. On arrival here was noted that he was hypoxic and required 4 L of nasal cannula to keep his pulse ox above 90%. He was fairly alert and oriented. He was febrile with a temperature of 100.8 temporally. His lab workup was unremarkable as was a chest x-ray. I asked the hospitalist to evaluate him for his respiratory insufficiency which I am treating as a likely pneumonia. It seems early for an empyema. - Diagnoses Provider Diagnoses: Respiratory insufficiency, PNA (pneumonia) - Provider Notifications Discussed Care Of Patient With: Leonardo Edmonds Time Discussed With Above Provider: 11:10 Instructed by Provider To: Admit As Inpatient Discharge - Sign-Out/Discharge Documenting (check all that apply): Patient Departure - Discharge Plan Condition: Stable Disposition: ADMITTED TO [facility] Referrals: Nona Diaz MD [Primary Care Provider] - - Billing Disposition and Condition Condition: STABLE Disposition: Admitted to [facility] - Attestation Statements Document Initiated by Leanneibe: Yes Documenting Scribe: Marietta Virgen Provider For Whom Georgette is Documenting (Include Credential): Ghanshyam Mayen MD. Scribe Attestation: IMarietta, lazaraed for Ghanshyam Mayen MD. on 04/28/19 at 1212. Scribe Documentation Reviewed: Yes Provider Attestation: The documentation as recorded by the scribeMarietta accurately reflects the service I personally performed and the decisions made by me, Ghanshyam Mayen MD. Status of Scribe Document: Viewed Consult Consult: 1110 - Dr. Edmonds will admit the pt to [facility] with dx of respiratory insufficiency and pneumonia.
[2019-04-28 10:28] LABS: ABS Lymphocytes 1.1 10^3/ul (1.0-4.8); ABS Monocytes 0.7 10^3/ul (0-0.8); ABS Neutrophils 5.4 10^3/ul (1.5-7.7); ABS Nucleated RBC 0.2 10^3/ul; Hematocrit 34 % (42-52); Hemoglobin 11.7 g/dL (14.0-18.0); Mean Corpuscular HGB Conc 35 g/dL (31-36); Mean Corpuscular Hemoglobin 31 pg (27-31); Mean Corpuscular Volume 88 fL (80-94); Mean Platelet Volume 7.9 fL (7.4-10.4); Nucleated Red Blood Cells % 3.3; Platelet Count 151 10^3/uL (150-450); Red Blood Count 3.85 10^6 /uL (4.18-5.48); Red Cell Distribution Width 14 % (10-15); White Blood Count 7.2 10^3/uL (3.5-10.8)
[2019-04-28 10:45] LABS: Albumin 3.7 g/dL (3.2-5.2); BUN/Creatinine Ratio 20.4 (8-20); C Reactive Protein 282.91 mg/L (<8.01); EGFR African American 79.6 (>60); EGFR Non-African American 65.8 (>60); Globulin 3.7 g/dL (2-4); Potassium 3.8 mmol/L (3.5-5.0); Total Bilirubin 1.6 mg/dL (0.2-1.0); Total Protein 7.4 g/dL (6.4-8.9)
[2019-04-28] MEDS ORDERED: Levofloxacin 750 MG IVPREMIX(* 750 MG/150 ML BAG IVPB ONE (11:08)
--- NOTE | 2019-04-28 11:51 | ADMNOTE ---
Subjective Date of Service: 04/28/19 Interval History: ADMISSION HISTORY AND PHYSICAL EXAM: Allergies Allergy/AdvReac Type Severity Reaction Status Date / Time No Known Allergies Allergy Verified 05/16/16 15:11 Home Medications Medication Instructions Recorded Confirmed Type Carbidopa/Levodop 25/100 MG(*) 2.5 tab PO TID 01/15/17 04/27/19 History Pramipexole Di-HCl [Pramipexole 3 tab PO TID 01/15/17 04/27/19 History Dihydrochloride] Acetaminophen TAB* [Tylenol TAB*] 650 mg PO Q4H PRN #0 tab 01/20/17 04/27/19 Rx Aspirin 81 mg PO TID 04/27/19 04/27/19 History Hydrocodone/Acetaminophen [Vicodin 1 each PO Q4HR PRN #24 tablet MDD 4 04/27/19 Rx 5-300 mg Tablet] HPI: The patient was sin is usual state of health until the afternoon of when he fell onto his lawnmower, causing pain in his R chest. The next day it was worse and he went to the ED. CT of the chest showed consolidation in R lung and R s 7th rib fx, ad a small R pleural effusion. On awakening the DOA he was confused, could not take his meds or eat and his called 911. He now seems nearly back to nl per his in the ED room. He denies chills, sweats. He did not take his temperature at home. Family History: Findings - unremarkable Social History: Findings - Lives with his who is his SDM. No tobacco or alcohol use. Past Medical History: Findings - Prostate ca treated with seeds in [place] facility about 15 yrs ago. [place] cataract surgery. R olecranon fx 12/2016 with ORIF. Parkinson's, treated at [place]. Review of Systems - Measurements Intake and Output: Intake and Output Last 24 Hours 04/26/19 04/27/19 04/28/19 04/29/19 06:59 06:59 06:59 06:59 Weight 200 lb - Review of Systems Constitutional Symptoms: Negative: Weight Gain, Weight Loss, Weakness, Fatigue, Fever, Night Sweats, Unexplained Falls, Other Dermatology: Negative: Normal, Rash, Skin Lesions, Cancer, Skin Lumps, Other HEENT: Negative: Normal, Change in Hearing, Vertigo, Dental Problems, Tinnitus, Sinus Problem, Other Eyes: Negative: Normal, Change in Vision, Double Vision, Eye Pain, Glaucoma, Cataract, Contacts or Glasses, Other Thyroid: Negative: Normal, Goiter, Thyroid Nodule, Cold Intolerance, Heat Intolerance , Sweatiness, Tremor, Frequent Defecation, Constipation, Palpitations, Primary Hypothyroidism, Primary Hyperthyroidism, Weight Loss, Weight Gain, Change in Skin/Hair, Change in Menstruation, Radiation Exposure, Other Pulmonary: Positive: Cough Cardiology: Positive: Chest Pain Gastroenterology: Positive: Normal Genital - Urinary: Positive: Normal Musculoskeletal: Positive: Joint Pain Endocrinology: Positive: Normal Hematologic/Lymphatic: Negative: Anemia, Easy Bruising, Hx Leukemia, Hx Lymphoma, Use of Anticoagulant, Use of Antiplatelet Drugs, Other Neurology: Positive: Other - parkinson's Psychiatry: Positive: Normal Allergic/Immunologic: Negative: Hx Anaphylaxis, Hx Angioedema, Hx Environmental, Hx Seasonal, Asthma, Hx HIV, Immunocompromise, Swollen Glands LymphNodes, Other Objective Active Medications: Aspirin (Aspirin 81 Mg Chew Tab*) 81 mg PO TID [facility] Enoxaparin Sodium (Lovenox(*)) 40 mg SUBCUT Q24H SANJAY Azithromycin (Zithromax 500 Mg/250 Ml) 500 mg in 250 mls @ 250 mls/hr IVPB Q24H SANJAY Ceftriaxone Sodium 1 gm/ (Sodium Chloride) 50 mls @ 100 mls/hr IVPB Q24H [facility] Non-Formulary Medication (Carbidopa/Levodop 25/100 Mg(*)) 2.5 tab PO TID [facility] Pramipexole Dihydrochloride (Mirapex Tab*) 0.375 mg PO TID [facility] Vital Signs - 8 hr 04/28/19 04/28/19 04/28/19 09:32 10:00 10:03 Temperature 100.8 F Pulse Rate 90 74 77 Respiratory 20 19 19 Rate Blood Pressure 135/76 138/66 (mmHg) O2 Sat by Pulse 93 95 96 Oximetry 04/28/19 04/28/19 04/28/19 10:33 11:00 11:03 Temperature Pulse Rate Respiratory 20 17 19 Rate Blood Pressure 141/66 148/69 (mmHg) O2 Sat by Pulse Oximetry 04/28/19 04/28/19 11:33 11:44 Temperature 101.6 F Pulse Rate 94 Respiratory 24 Rate Blood Pressure 146/94 (mmHg) O2 Sat by Pulse 95 Oximetry Oxygen Devices in Use Now: Nasal Cannula Appearance: Alert, partly up on ED stretcher. Neutral affect. Looks weak but comfortable at rest. Eyes: No Scleral Icterus Neck: NL Appearance and Movements; NL JVP, No Thyroid Enlargement, Masses Respiratory: Symmetrical Chest Expansion and Respiratory Effort, Clear to Auscultation, - - Tender R lower chest. Shallow respirations Cardiovascular: NL Sounds; No Murmurs; No JVD, RRR, No Edema, - Abdominal: NL Sounds; No Tenderness; No Distention, No Hepatosplenomegaly, - Extremities: No Clubbing, Cyanosis, - - Tr to 1+ edema BL Skin: No Rash or Ulcers, No Nodules or Sclerosis, - Neurological: NL Sensation - Can name the facility, gave hiw age as 79, present month as March, could not state present year. Mild rigidity all limbs., - - Alert, able to state name of this facility. He gave his age as 79, present month as March. He could not state the present year. Some rigidity all limbs. Blank facies. Result Diagrams: 04/28/19 10:10 04/28/19 10:10 Assess/Plan/Problems-Billing Assessment: - Patient Problems (1) Fever Current Visit: Yes Status: Acute Code(s): R50.9 - FEVER, UNSPECIFIED SNOMED Code(s): 975517801 Comment: Mostly not tachycardic and WBC wnl but increased hypoxia. Treatment for pneumona with ceftriaxone and azith started in ED. Guaifenesin, incentive spirometry ordered. IV fluids, stop when adequate oral hydration is documented. (2) Parkinson disease Current Visit: Yes Status: Acute Code(s): G20 - PARKINSON'S DISEASE SNOMED Code(s): 72438171 Comment: Continue home dose Ldopa/crbidopa, pramipexole. PT/OT requested. Depending on care needs may need STR.
[2019-04-28] MEDS ORDERED: cefTRIAXone(*) 1 GM in NS 0.9% 50 ML* 50 ML IVPB SCH (12:00)
[2019-04-28] MEDS ORDERED: Azithromycin 500 mg/250 ml NS 500 MG/250 ML BAG IVPB SCH (12:00)
[2019-04-28] MEDS ORDERED: NS 0.9% w/ 20 Meq KCL 1000 ML* 1,000 ML IV SCH (12:00)
[2019-04-28 12:32] LABS: Urine Appearance Clear; Urine Bacteria Absent (Absent); Urine Bilirubin Negative (Negative); Urine Blood 2+ (Negative); Urine Color Amber; Urine Glucose Negative (Negative); Urine Ketones 1+ (Negative); Urine Nitrite Negative (Negative); Urine Protein 2+(100 mg/dL) (Negative); Urine Red Blood Cell 2+(6-10/hpf) (Absent); Urine Specific Gravity 1.029 (1.010-1.030); Urine Urobilinogen Negative (Negative); Urine White Blood Cell Trace(0-5/hpf) (Absent)
[2019-04-28] MEDS: Enoxaparin(*) 40 MG/0.4 ML SYR SUBCUT SCH (13:40)
[2019-04-28] MEDS: Carbidopa/Levodop 25/100 MG TAB(*) PO SCH ×3 (13:41→21:31)
[2019-04-28] MEDS: Aspirin 81 mg CHEW TAB* 81 MG TAB.CHEW PO SCH ×2 (13:45→21:31)
[2019-04-28] MEDS: guaiFENesin LIQ* 100 MG/5 ML UDC PO SCH ×3 (13:52→21:32)
[2019-04-28] MEDS: Pramipexole TAB* 0.125 MG PO SCH ×3 (13:52→21:32)
[2019-04-28] MEDS: cefTRIAXone(*) 1 GM in NS 0.9% 50 ML* 50 ML IVPB SCH (13:58)
--- NOTE | 2019-04-28 14:01 | PN ---
Sepsis Event Evaluation Vital Signs - Last 12 Hours: Vital Signs - 12 hr Temp Pulse Resp BP Pulse Ox 04/28/19 12:41 22 118/64 04/28/19 12:36 101.1 F 86 22 118/64 95 04/28/19 12:00 14 04/28/19 11:44 101.6 F 04/28/19 11:33 94 24 146/94 95 04/28/19 11:03 19 148/69 04/28/19 11:00 17 04/28/19 10:33 20 141/66 04/28/19 10:03 77 19 138/66 96 04/28/19 10:00 74 19 95 04/28/19 09:32 100.8 F 90 20 135/76 93 Assess/Plan/Problems-Billing Assessment: - Patient Problems (1) Fever Current Visit: Yes Status: Acute Code(s): R50.9 - FEVER, UNSPECIFIED SNOMED Code(s): 879221679 Comment: Mostly not tachycardic and WBC wnl but increased hypoxia. Treatment for pneumona with ceftriaxone and azith started in ED. Guaifenesin, incentive spirometry ordered. IV fluids, stop when adequate oral hydration is documented. (2) Parkinson disease Current Visit: Yes Status: Acute Code(s): G20 - PARKINSON'S DISEASE SNOMED Code(s): 88792238 Comment: Continue home dose Ldopa/crbidopa, pramipexole. PT/OT requested. Depending on care needs may need STR.
[2019-04-28] MEDS: traMADol TAB* 50 MG PO PRN ×2 (14:09→21:31)
[2019-04-28] MEDS: Acetaminophen TAB* 325 MG PO PRN (14:11)
[2019-04-28] MEDS ORDERED: Trihexyphenidyl TAB* 2 MG PO ONE (14:12)
[2019-04-28] MEDS: NS 0.9% 1000 ML** 2,720 ML IV ONE ×2 (14:23→16:24)
[2019-04-28] MEDS ORDERED: Furosemide IV* 10 MG/ML 2 ML VIAL (20 MG) ONE (18:53)
[2019-04-28] MEDS ORDERED: Furosemide IV* 10 MG/ML 2 ML VIAL (20 MG) IV ONE (18:55)
[2019-04-28] MEDS: Trihexyphenidyl TAB* 2 MG PO SCH (21:32)
--- NOTE | 2019-04-28 23:41 | PN ---
Hospitalist Progress Note Date of Service: 04/28/19 Called by Nursing due to patient complaining of shortness of breath. Patient was evaluated at the bedside. Patient is alert, with moderate respiratory distress. O2 on via face mask at 15 liters, appears fatigued. Lung soungs with course rhonchi bilat. ABG ordered and will transfer to the ICU for vapotherm IVF stopped
[2019-04-29 05:04] LABS: ABS Lymphocytes 1.5 10^3/ul (1.0-4.8); ABS Monocytes 0.6 10^3/ul (0-0.8); ABS Neutrophils 3.7 10^3/ul (1.5-7.7); Eosinophil % 0.3 %; Hematocrit 33 % (42-52); Hemoglobin 11.2 g/dL (14.0-18.0); Lymphocyte % 25.9 %; Mean Corpuscular HGB Conc 34 g/dL (31-36); Mean Corpuscular Hemoglobin 30 pg (27-31); Mean Corpuscular Volume 87 fL (80-94); Mean Platelet Volume 7.7 fL (7.4-10.4); Nucleated Red Blood Cells % 0.3; Platelet Count 141 10^3/uL (150-450); Red Blood Count 3.77 10^6 /uL (4.18-5.48); Red Cell Distribution Width 15 % (10-15); White Blood Count 5.9 10^3/uL (3.5-10.8)
[2019-04-29 05:20] LABS: BUN/Creatinine Ratio 19.3 (8-20); Calcium 8.3 mg/dL (8.6-10.3); EGFR African American 100.8 (>60); EGFR Non-African American 83.3 (>60); Potassium 3.6 mmol/L (3.5-5.0)
[2019-04-29] MEDS: Carbidopa/Levodop 25/100 MG TAB(*) PO SCH ×3 (08:03→21:43)
[2019-04-29] MEDS: Aspirin 81 mg CHEW TAB* 81 MG TAB.CHEW PO SCH ×2 (08:03→08:10)
[2019-04-29] MEDS: guaiFENesin LIQ* 100 MG/5 ML UDC PO SCH ×4 (08:03→22:01)
[2019-04-29] MEDS: Acetaminophen TAB* 325 MG PO PRN (08:03)
[2019-04-29] MEDS: Trihexyphenidyl TAB* 2 MG PO SCH ×3 (08:04→21:45)
[2019-04-29] MEDS: Pramipexole TAB* 0.125 MG PO SCH ×3 (08:04→21:44)
[2019-04-29] MEDS ORDERED: Potassium Chloride* LIQUID 20 MEQ/15 ML UDC PO ONE (08:11)
[2019-04-29 08:29] LABS: Magnesium 1.6 mg/dL (1.9-2.7)
[2019-04-29] MEDS ORDERED: Magnesium Sulfate 2 GM IV* 2 GM/50 ML BAG IVPB ONE (08:46)
[2019-04-29] MEDS ORDERED: Azithromycin TAB* 250 MG PO SCH (09:00)
--- NOTE | 2019-04-29 09:10 | PN ---
Subjective Date of Service: 04/29/19 Interval History: Yesterday evening experienced increased SOB. IVF stopped, patient given furosemide IV, and transferred to the ICU for vapotherm. Still with fevers but no cultures done this admission. This AM, patient reports significant improvement in SOB, and he is now back on NC. He denies pain or discomfort. Currently febrile but denies chills. Objective Active Medications: Acetaminophen (Tylenol Tab*) 650 mg PO Q4H PRN PRN Reason: TEMPERATURE > 100.4 Last Admin: 04/29/19 08:03 Dose: 650 mg Aspirin (Aspirin 81 Mg Chew Tab*) 81 mg PO DAILY [facility] Last Admin: 04/29/19 08:10 Dose: 81 mg Azithromycin (Zithromax Tab*) 250 mg PO DAILY [facility] Stop: 05/02/19 09:01 Last Admin: 04/29/19 08:44 Dose: 250 mg Carbidopa/Levodopa (Sinemet 25/100 Tab(*)) 2.5 tab PO TID [facility] Last Admin: 04/29/19 08:03 Dose: 2.5 tab Enoxaparin Sodium (Lovenox(*)) 40 mg SUBCUT Q24H [facility] Last Admin: 04/28/19 13:40 Dose: 40 mg Guaifenesin (Robitussin*) 10 ml PO QID [facility] Last Admin: 04/29/19 08:03 Dose: 10 ml Ceftriaxone Sodium 1 gm/ (Sodium Chloride) 50 mls @ 100 mls/hr IVPB Q24HR@1400 [facility] Last Admin: 04/28/19 13:58 Dose: 100 mls/hr Magnesium Sulfate (Magnesium Sulfate 2 Gm Iv*) 2 gm in 50 mls @ 50 mls/hr IVPB ONCE ONE Stop: 04/29/19 09:45 Pramipexole Dihydrochloride (Mirapex Tab*) 0.375 mg PO TID [facility] Last Admin: 04/29/19 08:04 Dose: 0.375 mg Tramadol HCl (Ultram*) 50 mg PO Q6H PRN PRN Reason: PAIN - MODERATE Last Admin: 04/28/19 21:31 Dose: 50 mg Trihexyphenidyl HCl (Artane*) 1 mg PO TID [facility] Last Admin: 04/29/19 08:04 Dose: 1 mg Vital Signs - 8 hr 0804/29/19 04/29/19 02:00 03:00 03:49 Temperature 102 F Pulse Rate 76 75 Respiratory 19 18 Rate Blood Pressure 143/72 138/70 (mmHg) O2 Sat by Pulse 99 98 Oximetry 04/29/19 04/29/19 04/29/19 03:54 04:00 05:00 Temperature Pulse Rate 77 82 Respiratory 17 19 19 Rate Blood Pressure 151/70 156/71 (mmHg) O2 Sat by Pulse 97 96 Oximetry 04/29/19 04/29/19 04/29/19 06:00 07:00 08:00 Temperature 102.3 F Pulse Rate 75 80 90 Respiratory 20 30 22 Rate Blood Pressure 139/72 157/77 169/81 (mmHg) O2 Sat by Pulse 96 95 93 Oximetry 04/29/19 04/29/19 08:12 08:55 Temperature Pulse Rate 89 Respiratory 23 19 Rate Blood Pressure 165/77 (mmHg) O2 Sat by Pulse 92 Oximetry Oxygen Devices in Use Now: Nasal Cannula Appearance: tired-appearing elderly man in NAD Eyes: No Scleral Icterus Ears/Nose/Mouth/Throat: Mucous Membranes Moist Respiratory: - - bibasilar crackles Cardiovascular: RRR Abdominal: - - soft, nontender, nondistended; tenderness over R anterior lower ribs Extremities: - - trace edema over b/l ankles Skin: - - diaphoretic Neurological: Alert and Oriented x 3 Result Diagrams: 04/29/19 04:56 04/29/19 04:56 Microbiology and Other Data: Microbiology 04/28/19 19:38 Nasal Screen MRSA (PCR) - Final Nasal Mrsa Not Detected Assess/Plan/Problems-Billing Assessment: 78M with Parkinsons, h/o prostate cancer s/p radiation, presents after fall with rib pain, found with fever, hypoxia, and imaging concerning for pneumonia. - Patient Problems (1) Fever Comment: with normal HR, WBC. Imaging concerning for lung consolidation - likely pneumonia given recent fall with rib fractures c/b atelectasis. - cont CTX/azithro - get BCx and urine antigens (2) Hypoxia Comment: Most likely from pneumonia with associated effusion. Will explore for other options as well. No history of smoking. Low PE risk but will consider work up if not improved. Has rib fractures after fall but no PTX on xray. - f/u TTE - s/p furosemide after IVF (3) Parkinson disease Current Visit: Yes Status: Acute Code(s): G20 - PARKINSON'S DISEASE SNOMED Code(s): 05313363 Comment: Continue home dose Ldopa/crbidopa, pramipexole. PT/OT requested. Depending on care needs may need STR. (4) Rib fracture Comment: due to fall - pain control with APAP for mild pain, tramadol for [id number] - pulm toilet - monitor for PTX (5) DVT prophylaxis Comment: lovenox
[2019-04-29] MEDS ORDERED: Acetaminophen TAB* 325 MG PO PRN (09:24)
[2019-04-29] MEDS ORDERED: Perflutren Lipid Microsphere* 3 ML VIAL ONE (10:30)
[2019-04-29] MEDS: Enoxaparin(*) 40 MG/0.4 ML SYR SUBCUT SCH (12:15)
--- NOTE | 2019-04-29 14:16 | ECHO ---
*[facility]* [place] [address] Fax #: [phone] Transthoracic Echocardiogram Patient: Dylan Cohen : 1940 Study Date: 04/29/2019 Age: 78 Gender: M HR: 75 bpm Height: 75 in /190.5 cm BSA: 2.26 m^2 Weight: 213.6 lb /97.1 kg BMI: 26.7 kg/m^2 *Watch Assembly Inspector: Chaparrita Lu [facility] *Referring Physician: * Yvette Cervantes *Reading Physician: * James Almanza MD Indications: Edema. History: Prostate cancer. Conclusions Summary: - Procedure narrative: Transthoracic echocardiography was performed. Image quality was poor. Intravenous Definity , 3 mlswas administered. - Left ventricle: The cavity size is normal. Wall thickness is mildly increased. Systolic function is normal. The estimated ejection fraction is 55-60%. Wall motion is normal; there are no regional wall motion abnormalities. - Right ventricle: The cavity size is mildly dilated. Systolic function is mildly reduced. - Left atrium: Not well visualized. - Aortic root: The aortic root is mildly dilated. - No significant valvular abnormalities or pulmonary hypertension noted on technically difficult study. Recommendations: None prior for comparison at time of interpretation Study data: Transthoracic echocardiogram. Procedure: Transthoracic echocardiography was performed. Image quality was poor. Intravenous Definity , 3 mlswas administered. Complete 2D, spectral Doppler, and color flow Doppler. Location: ICU Patient status: Inpatient. Patient room number: 4. Rhythm: Normal sinus rhythm. Findings Left ventricle: The cavity size is normal. Wall thickness is mildly increased. Systolic function is normal. The estimated ejection fraction is 55-60%. Wall motion is normal; there are no regional wall motion abnormalities. Left ventricular diastolic function parameters are indeterminate. Right ventricle: The cavity size is mildly dilated. Systolic function is mildly reduced. Left atrium: Not well visualized. Right atrium: Not well visualized. Mitral valve: The leaflets are mildly thickened. There is no evidence of stenosis. No significant regurgitation noted on technically difficult imaging. Aortic valve: The valve is trileaflet. The leaflets are mildly thickened. There is no evidence of stenosis. There is no significant regurgitation. Tricuspid valve: Not well visualized. There is no evidence of stenosis. There is mild regurgitation. Pulmonic valve: Not well visualized. There is no significant regurgitation. Aorta: Aortic root: The aortic root is mildly dilated. Ascending aorta: The ascending aorta is mildly dilated. Aortic arch: The aortic arch is appears normal. Pericardium: There is no significant pericardial effusion. Pulmonary arteries: Not well visualized. Systolic pressure is within the normal range. Systemic veins: Inferior vena cava: Not well visualized. Measurements Left ventricle Value Ref Aortic valve Value Ref BEBETO, LAX 4.3 cm 4.2 - 5.8 Chon diam, ED 2.6 cm ----- ESD, LAX (L) 2.2 cm 2.5 - 4.0 Peak v, S 1 m/sec ----- FS, LAX (H) 50 % 25 - 43 VTI, S 21.4 cm ----- PW, ED, LAX (H) 1.4 cm 0.6 - 1.0 Mean grad, S 2.0 mm Hg ----- EF (H) 82 % 52 - 72 E', lat chon, TDI (L) 3.2 cm/sec >=10.0 Mitral valve Value Ref E/e', lat chon, 23 Peak E 0.74 m/sec ----- TDI Peak A 0.8 m/sec ----- E', med chon, TDI (L) 6.6 cm/sec >=7.0 Decel time 143 ms --- -- E/e', med chon, 11 Peak grad, D 2.2 mm Hg ----- TDI Peak E/A ratio 0.9 ----- E', avg, TDI 4.9 cm/sec E/e', avg, TDI (H) 15 <=14 Pulmonic valve Value Ref Peak v, S 0.75 m/sec ----- LVOT Value Ref Peak grad, S 2.0 mm Hg ----- Peak aleida, S 0.72 m/sec Mean grad, S 1 mm Hg Tricuspid valve Value Ref TR peak v 2.5 m/sec <=2.8 Ventricular septum Value Ref Peak RV-RA grad, S 25 mm Hg ----- IVS, ED (H) 1.4 cm 0.6 - 1.0 Aortic root Value Ref Right ventricle Value Ref Root diam 3.8 cm <4.3 BEBETO, LAX 3.8 cm Pressure, S 33 mm Hg Ascending aorta Value Ref AAo AP diam, S 3.6 cm ----- Left atrium Value Ref AP dim, ES 3.60 cm 3.00 - Aortic arch Value Ref 4.00 Arch diam 3.2 cm ----- ML dim, A4C 4.3 cm SI dim, A4C 5.0 cm Decending aorta Value Ref Linnette peak aleida 0.9 m/sec ----- Right atrium Value Ref SI dim, ES 4.7 cm 3.4 - 5.3 Pulmonary artery Value Ref ML dim, ES, A4C 4.0 cm 2.6 - 4.4 Pressure, S 31.0 mm Hg ----- Estimated RAP 8 mm Hg Legend: (L) and (H) hernandez values outside specified reference range. Prepared and electronically signed by James Almanza MD 04/29/2019 14:16
[2019-04-29] MEDS: cefTRIAXone(*) 1 GM in NS 0.9% 50 ML* 50 ML IVPB SCH (16:09)
[2019-04-30] MEDS: traMADol TAB* 50 MG PO PRN (00:32)
[2019-04-30 05:45] LABS: BUN/Creatinine Ratio 20.5 (8-20); Calcium 8.3 mg/dL (8.6-10.3); EGFR African American 115.9 (>60); EGFR Non-African American 95.8 (>60); Magnesium 1.9 mg/dL (1.9-2.7); Potassium 3.7 mmol/L (3.5-5.0)
--- NOTE | 2019-04-30 07:39 | PN ---
Subjective Date of Service: 04/30/19 Interval History: Off Vapotherm since yesterday morning, so transferred out of ICU yesterday. Pt pas defervesced - last fever 24 hours ago. Legionella antigen positive. Pt reporting dry cough but not longer shortness of breath. He still feels week and looks forward to working with PT. Switching to PO abx today. Objective Active Medications: Acetaminophen (Tylenol Tab*) 975 mg PO Q8H PRN PRN Reason: Fever or Mild Pain Aspirin (Aspirin 81 Mg Chew Tab*) 81 mg PO DAILY [facility] Last Admin: 04/30/19 09:22 Dose: 81 mg Azithromycin (Zithromax Tab*) 500 mg PO DAILY [facility] Stop: 05/02/19 09:01 Last Admin: 04/30/19 09:24 Dose: 500 mg Carbidopa/Levodopa (Sinemet 25/100 Tab(*)) 2.5 tab PO TID WITH MEALS [facility] Last Admin: 04/30/19 18:13 Dose: 2.5 tab Cefdinir (Cefdinir Cap*) 300 mg PO BID [facility] Last Admin: 04/30/19 09:23 Dose: 300 mg Enoxaparin Sodium (Lovenox(*)) 40 mg SUBCUT Q24H [facility] Last Admin: 04/30/19 13:05 Dose: 40 mg Guaifenesin (Robitussin*) 10 ml PO QID [facility] Last Admin: 04/30/19 18:12 Dose: 10 ml Pramipexole Dihydrochloride (Mirapex Tab*) 0.375 mg PO TID [facility] Last Admin: 04/30/19 13:03 Dose: 0.375 mg Tramadol HCl (Ultram*) 50 mg PO Q6H PRN PRN Reason: PAIN - MODERATE Last Admin: 04/30/19 00:32 Dose: 50 mg Trihexyphenidyl HCl (Artane*) 1 mg PO TID [facility] Last Admin: 04/30/19 13:01 Dose: 1 mg Vital Signs - 8 hr 04/29/19 04/30/19 04/30/19 23:39 00:32 02:30 Temperature 99.8 F Pulse Rate 83 Respiratory 20 20 21 Rate Blood Pressure 140/69 (mmHg) O2 Sat by Pulse 93 Oximetry 04/30/19 02:47 Temperature 98.5 F Pulse Rate 73 Respiratory 16 Rate Blood Pressure 129/61 (mmHg) O2 Sat by Pulse 91 Oximetry Oxygen Devices in Use Now: Nasal Cannula Appearance: tired but more alert, NAD, no increased WOB Eyes: No Scleral Icterus Ears/Nose/Mouth/Throat: Clear Oropharnyx, Mucous Membranes Moist Neck: NL Appearance and Movements; NL JVP Respiratory: - - bibasilar crackles improved with cough Cardiovascular: RRR Abdominal: NL Sounds; No Tenderness; No Distention Extremities: - - trace edema b/l over ankles Skin: No Rash or Ulcers Result Diagrams: 04/29/19 04:56 04/30/19 05:13 Microbiology and Other Data: Microbiology 04/28/19 19:38 Nasal Screen MRSA (PCR) - Final Nasal Mrsa Not Detected Assess/Plan/Problems-Billing Assessment: 78M with Parkinsons, h/o prostate cancer s/p radiation, presents after fall with rib pain, found with fever, hypoxia, and imaging concerning for pneumonia. Now with urine antigen positive for legionella. - Patient Problems (1) Fever Comment: with normal HR, WBC. Legionella antigen positive and imaging concerning for lung consolidation. Discussed with ID. Pt does have hyponatremia and diarrhea, but other features of story not entirely consistent with Legionella infection, so could be prudent to continue to cover for other causes of CAP. - cont antibiotics, cefdinir and azithro [04/28 - ] (2) Hypoxia Comment: Most likely from pneumonia with associated effusion. TTE largely unremarkable. No history of smoking. Low PE risk but will consider work up if not improved. Has rib fractures after fall but no PTX on xray. - s/p furosemide after IVF, improved - cont pulm toilet, incentive spirometry (3) Parkinson disease Comment: Continue home dose Ldopa/crbidopa, pramipexole. PT recommending STR. (4) Rib fracture Comment: due to fall - pain control with APAP for mild pain, tramadol for [id number] - pulm toilet - monitor for PTX (5) DVT prophylaxis Comment: lovenox
[2019-04-30] MEDS ORDERED: Potassium Chlor TAB* 20 MEQ TAB.ER PO ONE (07:45)
[2019-04-30] MEDS ORDERED: Magnesium Sulfate 1 GM IV* 1 GM/100 ML BAG IV ONE (07:46)
[2019-04-30] MEDS: Trihexyphenidyl TAB* 2 MG PO SCH ×3 (09:22→21:55)
[2019-04-30] MEDS: Carbidopa/Levodop 25/100 MG TAB(*) PO SCH ×2 (09:22→18:13)
[2019-04-30] MEDS: Aspirin 81 mg CHEW TAB* 81 MG TAB.CHEW PO SCH (09:22)
[2019-04-30] MEDS: Cefdinir cap* 300 MG CAP PO SCH ×2 (09:23→21:56)
[2019-04-30] MEDS: Pramipexole TAB* 0.125 MG PO SCH ×3 (09:23→21:56)
[2019-04-30] MEDS: Azithromycin TAB* 250 MG PO SCH (09:24)
[2019-04-30] MEDS: guaiFENesin LIQ* 100 MG/5 ML UDC PO SCH ×4 (09:24→21:54)
[2019-04-30] MEDS ORDERED: Carbidopa/Levodop 25/100 MG TAB(*) PO SCH (12:00)
[2019-04-30] MEDS: Enoxaparin(*) 40 MG/0.4 ML SYR SUBCUT SCH (13:05)
[2019-05-01 06:57] LABS: BUN/Creatinine Ratio 16.2 (8-20); Calcium 8.7 mg/dL (8.6-10.3); EGFR African American 123.1 (>60); EGFR Non-African American 101.8 (>60); Potassium 3.6 mmol/L (3.5-5.0)
[2019-05-01] MEDS ORDERED: Potassium Chlor TAB* 20 MEQ TAB.ER PO ONE (07:38)
--- NOTE | 2019-05-01 07:43 | PN ---
Subjective Date of Service: 05/01/19 Interval History: Able to come off oxygen yesterday. Now over 24 hours on PO antibiotics and still without fever. PT recommending STR. Also being considered for PMRU. Pt reports significant improvement in SOB and weakness. Objective Active Medications: Acetaminophen (Tylenol Tab*) 975 mg PO Q8H PRN PRN Reason: Fever or Mild Pain Aspirin (Aspirin 81 Mg Chew Tab*) 81 mg PO DAILY [facility] Last Admin: 04/30/19 09:22 Dose: 81 mg Azithromycin (Zithromax Tab*) 500 mg PO DAILY [facility] Stop: 05/02/19 09:01 Last Admin: 04/30/19 09:24 Dose: 500 mg Carbidopa/Levodopa (Sinemet 25/100 Tab(*)) 2.5 tab PO TID WITH MEALS [facility] Last Admin: 04/30/19 18:13 Dose: 2.5 tab Cefdinir (Cefdinir Cap*) 300 mg PO BID [facility] Last Admin: 04/30/19 21:56 Dose: 300 mg Enoxaparin Sodium (Lovenox(*)) 40 mg SUBCUT Q24H [facility] Last Admin: 04/30/19 13:05 Dose: 40 mg Guaifenesin (Robitussin*) 10 ml PO QID [facility] Last Admin: 04/30/19 21:54 Dose: 10 ml Potassium Chloride (Klor Con Er Tab*) 40 meq PO ONCE ONE Stop: 05/01/19 07:39 Pramipexole Dihydrochloride (Mirapex Tab*) 0.375 mg PO TID [facility] Last Admin: 04/30/19 21:56 Dose: 0.375 mg Tramadol HCl (Ultram*) 50 mg PO Q6H PRN PRN Reason: PAIN - MODERATE Last Admin: 04/30/19 00:32 Dose: 50 mg Trihexyphenidyl HCl (Artane*) 1 mg PO TID [facility] Last Admin: 04/30/19 21:55 Dose: 1 mg Oxygen Devices in Use Now: Nasal Cannula Appearance: pleasant elderly man in NAD Respiratory: Clear to Auscultation Cardiovascular: RRR Abdominal: NL Sounds; No Tenderness; No Distention Extremities: No Edema Skin: No Rash or Ulcers Neurological: Alert and Oriented x 3 Result Diagrams: 05/01/19 18:17 05/01/19 18:17 Microbiology and Other Data: Microbiology 04/28/19 19:38 Nasal Screen MRSA (PCR) - Final Nasal Mrsa Not Detected Assess/Plan/Problems-Billing Assessment: 78M with Parkinsons, h/o prostate cancer s/p radiation, presents after fall with rib pain, found with fever, hypoxia, and imaging concerning for pneumonia. Now with urine antigen positive for legionella. - Patient Problems (1) Fever Comment: Without leukocytosis. Legionella antigen positive and imaging concerning for lung consolidation. Discussed with ID. Pt had hyponatremia and diarrhea, but other features of story not entirely consistent with Legionella infection, so could be prudent to continue to cover for other causes of CAP. - cont antibiotics, cefdinir and azithro [04/28 - ] (2) Hypoxia Comment: Most likely from pneumonia with associated effusion. TTE largely unremarkable. No history of smoking. Low PE risk but will consider work up if not improved. Has rib fractures after fall but no PTX on xray. - s/p furosemide after IVF, improved - cont pulm toilet, incentive spirometry (3) Parkinson disease Comment: Continue home dose Ldopa/crbidopa, pramipexole. PT recommending STR. (4) Rib fracture Comment: due to fall - pain control with APAP for mild pain, tramadol for [id number] - pulm toilet - monitor for PTX (5) DVT prophylaxis Comment: lovenox
[2019-05-01] MEDS: Trihexyphenidyl TAB* 2 MG PO SCH ×3 (09:19→22:35)
[2019-05-01] MEDS: Cefdinir cap* 300 MG CAP PO SCH ×2 (09:20→22:35)
[2019-05-01] MEDS: guaiFENesin LIQ* 100 MG/5 ML UDC PO PRN ×2 (09:21→22:41)
[2019-05-01] MEDS: Carbidopa/Levodop 25/100 MG TAB(*) PO SCH ×4 (09:22→22:34)
[2019-05-01] MEDS: Pramipexole TAB* 0.125 MG PO SCH ×3 (09:22→22:35)
[2019-05-01] MEDS: Azithromycin TAB* 250 MG PO SCH (09:23)
[2019-05-01] MEDS: Aspirin 81 mg CHEW TAB* 81 MG TAB.CHEW PO SCH (09:23)
[2019-05-01] MEDS: Enoxaparin(*) 40 MG/0.4 ML SYR SUBCUT SCH (12:27)
[2019-05-01] MEDS ORDERED: NS 0.9% 500 ML* 500 ML IV ONE (16:08)
[2019-05-01] MEDS ORDERED: Trihexyphenidyl TAB* 2 MG PO SCH (17:00)
[2019-05-01] MEDS ORDERED: Pramipexole TAB* 0.125 MG PO SCH (17:00)
[2019-05-01 18:23] LABS: Hematocrit 34 % (42-52); Hemoglobin 11.6 g/dL (14.0-18.0); Mean Corpuscular HGB Conc 34 g/dL (31-36); Mean Corpuscular Hemoglobin 30 pg (27-31); Mean Corpuscular Volume 87 fL (80-94); Mean Platelet Volume 7.4 fL (7.4-10.4); Platelet Count 233 10^3/uL (150-450); Red Blood Count 3.89 10^6 /uL (4.18-5.48); Red Cell Distribution Width 15 % (10-15)
[2019-05-01 18:41] LABS: BUN/Creatinine Ratio 16.3 (8-20); Calcium 8.5 mg/dL (8.6-10.3); EGFR African American 112.5 (>60); Magnesium 2.1 mg/dL (1.9-2.7); Potassium 3.8 mmol/L (3.5-5.0)
--- NOTE | 2019-05-02 07:43 | PN ---
Subjective Date of Service: 05/02/19 Interval History: Systolic BP decreased to 90s yesterday while patient was in chair, eating a meal with his . Asymptomatic and spontaneously returned to baseline 120s. Now off O2. Pending rehab. Objective Active Medications: Acetaminophen (Tylenol Tab*) 975 mg PO Q8H PRN PRN Reason: Fever or Mild Pain Aspirin (Aspirin 81 Mg Chew Tab*) 81 mg PO DAILY [facility] Last Admin: 05/01/19 09:23 Dose: 81 mg Azithromycin (Zithromax Tab*) 500 mg PO DAILY [facility] Stop: 05/02/19 09:01 Last Admin: 05/01/19 09:23 Dose: 500 mg Carbidopa/Levodopa (Sinemet 25/100 Tab(*)) 2.5 tab PO TID [facility] Last Admin: 05/01/19 22:34 Dose: 2.5 tab Cefdinir (Cefdinir Cap*) 300 mg PO BID [facility] Last Admin: 05/01/19 22:35 Dose: 300 mg Enoxaparin Sodium (Lovenox(*)) 40 mg SUBCUT Q24H [facility] Last Admin: 05/01/19 12:27 Dose: 40 mg Guaifenesin (Robitussin*) 10 ml PO QID PRN PRN Reason: COUGH Last Admin: 05/01/19 22:41 Dose: 10 ml Pramipexole Dihydrochloride (Mirapex Tab*) 0.375 mg PO TID [facility] Last Admin: 05/01/19 22:35 Dose: 0.375 mg Tramadol HCl (Ultram*) 50 mg PO Q6H PRN PRN Reason: PAIN - MODERATE Last Admin: 04/30/19 00:32 Dose: 50 mg Trihexyphenidyl HCl (Artane*) 1 mg PO TID [facility] Last Admin: 05/01/19 22:35 Dose: 1 mg Vital Signs - 8 hr 05/02/19 02:23 Temperature 98 F Pulse Rate 78 Respiratory 18 Rate Blood Pressure 139/72 (mmHg) O2 Sat by Pulse 90 Oximetry Oxygen Devices in Use Now: None Result Diagrams: 05/01/19 18:17 05/01/19 18:17 Microbiology and Other Data: Microbiology 04/28/19 19:38 Nasal Screen MRSA (PCR) - Final Nasal Mrsa Not Detected Assess/Plan/Problems-Billing Assessment: 78M with Parkinsons, h/o prostate cancer s/p radiation, presents after fall with rib pain, found with fever, hypoxia, and imaging concerning for pneumonia. Now with urine antigen positive for legionella. - Patient Problems (1) Fever Comment: Without leukocytosis. Legionella antigen positive and imaging concerning for lung consolidation. Discussed with ID. Pt had hyponatremia and diarrhea, but other features of story not entirely consistent with Legionella infection, so could be prudent to continue to cover for other causes of CAP. - cont antibiotics, cefdinir and azithro [04/28 - ] (2) Hypoxia Comment: Most likely from pneumonia with associated effusion. TTE largely unremarkable. No history of smoking. Low PE risk but will consider work up if not improved. Has rib fractures after fall but no PTX on xray. - s/p furosemide after IVF, improved - cont pulm toilet, incentive spirometry (3) Parkinson disease Comment: Continue home dose Ldopa/crbidopa, pramipexole. PT recommending STR. (4) Rib fracture Comment: due to fall - pain control with APAP for mild pain, tramadol for [id number] - pulm toilet - monitor for PTX (5) DVT prophylaxis Comment: lovenox
[2019-05-02] MEDS: Trihexyphenidyl TAB* 2 MG PO SCH (08:16)
[2019-05-02] MEDS: Carbidopa/Levodop 25/100 MG TAB(*) PO SCH (08:18)
[2019-05-02] MEDS: Cefdinir cap* 300 MG CAP PO SCH (08:18)
[2019-05-02] MEDS: Aspirin 81 mg CHEW TAB* 81 MG TAB.CHEW PO SCH (08:19)
[2019-05-02] MEDS: Azithromycin TAB* 250 MG PO SCH (08:19)
[2019-05-02] MEDS: Pramipexole TAB* 0.125 MG PO SCH (08:20)
[2019-05-02] MEDS: Enoxaparin(*) 40 MG/0.4 ML SYR SUBCUT SCH (11:09)
--- NOTE | 2019-05-02 12:36 | DS ---
CC: Dr. Nona Diaz* DATE OF ADMISSION: 04/28/2019.[place] DATE OF DISCHARGE: 05/02/2019. PRIMARY CARE PHYSICIAN: Dr. Nona Diaz. PRIMARY DIAGNOSIS: Pneumonia, possibly due to legionella. SECONDARY DIAGNOSES: 1. Parkinson's disease. 2. Rib fracture after fall. DISCHARGE MEDICATIONS: 1. Cefdinir 300 mg twice a day for 2 more days, last dose evening of May 04. 2. Aspirin 81 mg daily. 3. Carbidopa/Levodopa t.i.d. 4. Artane 1 mg three times a day. 5. Pramipexole 0.375 mg three times a day. HISTORY OF PRESENT ILLNESS: Mr. Cohen is an 86-year-old man with Parkinson's , also a history of prostate cancer status post radiation who was in his usual state of health until two days prior to presentation when he fell onto his groover runner which caused pain in his right chest. The next day the pain was worse and he went to the ER. A CT of the chest showed consolidation of the right lung and right seventh rib fracture with a small right pleural effusion and the patient was discharged home. The next day upon awakening, the patient was confused, could not take his medications or eat, so his called 911 and he re-presented to the emergency room. HOSPITAL COURSE: By the time of arrival into the emergency room, the patient was nearly back to his baseline, but was very fatigued. He was noted to have a fever and hypoxia on room air. He was started on community-acquired pneumonia treatment with Ceftriaxone and Azithromycin. By the evening of day one of admission, the patient had experienced significant shortness of breath that was worsening. As he was in moderate respiratory distress on evaluation requiring face mask at 15 liters, he was transferred to the ICU for Vapotherm and given Furosemide with cessation of his IV fluids. By the next morning, the patient was able to come off of Vapotherm and was transferred back to the medical floors. The patient's urine antigen was noted to be positive for legionella antigen. The patient was continued on Azithromycin 500 mg to complete a five day course. He was also continued on third generation Cephalosporin for complete community-acquired pneumonia coverage. The patient was noted to have diarrhea early in the hospital course which resolved. His hyponatremia also resolved by the end of the hospitalization. He was seen and evaluated by PMRU who accepted the patient for admission. The patient eagerly awaits rehabilitation. PERTINENT STUDIES AND LABS: 1. Hemoglobin 11.6 at baseline with MCV 87. 2. Creatinine 0.8. 3. CRP on presentation 282. 4. Urine positive legionella antigen. 5. Chest x-ray with right pleural effusion with right basilar atelectasis and right lower lobe infiltrate. Left lung field is clear. 6. Transthoracic echocardiogram with LV cavity size normal with wall thickness mildly increased; EF 55 to 60 percent; wall motion normal; right ventricle mildly dilated with systolic function mildly reduced; left atrium not well visualized; no significant valvular abnormalities; technically difficult study. 7. Chest/abdomen/pelvis CT with right seventh rib fracture, small right pleural effusion, and consolidation of the right middle lobe and right lower lobe representing atelectasis and/or pneumonia. 8. Blood and urine cultures are negative. DISCHARGE PLAN: The patient will be discharged to [facility] for ongoing rehabilitation. He has completed a course of Azithromycin for five days, but should be continued on Cefdinir for two more days, finishing with an evening dose on May 04. He should continue to follow-up with his primary care physician, as well as a neurologist for his Parkinson's disease. His home medications were unchanged, except for the addition of an antibiotic. He was educated on return precautions which include, but are not limited to fever, worsening shortness of breath, or chest pain. DIET: He should resume a healthy diet, low in processed foods. ACTIVITY: As tolerated. DISPOSITION: To [facility]. CONDITION ON DISCHARGE: Improved. TIME SPENT: Approximately 60 minutes were spent on the discharge of this patient, more than half of which was spent with care coordination at bedside for interview and exam. [id number]/[facility] #: [id number] RAMY
[2019-05-02 15:11] VITALS: BP 110/59
== END 2019-05-02 13:45 | DRG 177 ==
LOC: ED 09:26 → MED 11:33 → ICU 19:05 → MED 04-29 16:11
PROVIDERS: ADMIT Internal Medicine; ATTEND Internal Medicine
PROC: 5A09357 Assistance with Respiratory Ventilation, Less than 24 Consecutive Hours, Continuous Positive Airway Pressure (ICD-10-PCS; principal; 2019-04-28)
DX: A48.1 Legionnaires' disease (principal); J96.01 Acute respiratory failure with hypoxia; S22.31XA Fracture of one rib, right side, initial encounter for closed fracture; S22.39XA Fracture of one rib, unspecified side, initial encounter for closed fracture; J98.11 Atelectasis; E87.1 Hypo-osmolality and hyponatremia; G20 Parkinson's disease; R41.82 Altered mental status, unspecified; W22.09XA Striking against other stationary object, initial encounter; Y92.096 Garden or yard of other non-institutional residence as the place of occurrence of the external cause; Z92.3 Personal history of irradiation; Z85.46 Personal history of malignant neoplasm of prostate; Z79.1 Long term (current) use of non-steroidal anti-inflammatories (NSAID); Z79.82 Long term (current) use of aspirin; Z79.899 Other long term (current) drug therapy
CPT/HCPCS: 36415; 36600; 71045; 71046; 71250; 74176; 80048; 80053; 81003; 81015; 82803; 83605; 83735; 85025; 85027; 86140; 87040; 87086; 87641; 87899; 93306; 99283; 99284; A9270-GY; C8929; G8978-GP-CM; G8979-GP-CK; G8987-GO-CK; G8988-GO-CI; J0456; J0696; J1650; J1940; J3475

== ENCOUNTER 2021-07-29 18:45 | Inpatient (IN) ==
[2021-07-29] MEDS ORDERED: Morphine 4 MG/ML VIAL (1 ml) IV ONE (20:17)
[2021-07-29] MEDS ORDERED: Morphine 4 MG/ML VIAL (1 ml) IV PRN (20:17)
[2021-07-29 20:43] LABS: ABS Eosinophils 0.1 10^3/ul (0-0.6); ABS Lymphocytes 2.7 10^3/ul (1.0-4.8); ABS Monocytes 0.3 10^3/ul (0-0.8); ABS Neutrophils 2.4 10^3/ul (1.5-7.7); Eosinophil % 1.7 %; Hematocrit 35 % (42-52); Hemoglobin 11.9 g/dL (14.0-18.0); Lymphocyte % 48.7 %; Mean Corpuscular HGB Conc 34 g/dL (31-36); Mean Corpuscular Hemoglobin 31 pg (27-31); Mean Corpuscular Volume 91 fL (80-94); Mean Platelet Volume 8.7 fL (7.4-10.4); Nucleated Red Blood Cells % 0.1; Platelet Count 158 10^3/uL (150-450); Red Blood Count 3.83 10^6 /uL (4.18-5.48); Red Cell Distribution Width 15 % (10-15); White Blood Count 5.5 10^3/uL (3.5-10.8)
[2021-07-29 20:46] LABS: Activated Partial Thrombo Time 30.2 seconds (26.0-38.0); INR 1.14 (0.86-1.15)
[2021-07-29 20:56] LABS: Albumin 4.1 g/dL (3.2-5.2); Albumin/Globulin Ratio 1.4 (1-3); Calcium 9.4 mg/dL (8.6-10.3); Potassium 4.3 mmol/L (3.5-5.0); Total Bilirubin 0.9 mg/dL (0.2-1.0); Total Protein 7.1 g/dL (6.4-8.9); Troponin I 0.01 ng/mL (<0.03)
[2021-07-29 20:59] LABS: Rapid COVID-19 Molecular Undetected (Undetected)
[2021-07-29] MEDS ORDERED: Ondansetron 4 mg VIAL 2 MG/ML 2 ml VIAL IV PRN (21:57)
[2021-07-30 06:10] LABS: ABS Lymphocytes 1.8 10^3/ul (1.0-4.8); ABS Monocytes 0.5 10^3/ul (0-0.8); ABS Neutrophils 4.8 10^3/ul (1.5-7.7); Eosinophil % 0.3 %; Hematocrit 30 % (42-52); Hemoglobin 10.4 g/dL (14.0-18.0); Lymphocyte % 24.9 %; Mean Corpuscular HGB Conc 35 g/dL (31-36); Mean Corpuscular Hemoglobin 31 pg (27-31); Mean Corpuscular Volume 90 fL (80-94); Mean Platelet Volume 8.1 fL (7.4-10.4); Nucleated Red Blood Cells % 0.1; Platelet Count 152 10^3/uL (150-450); Red Cell Distribution Width 14 % (10-15); White Blood Count 7.1 10^3/uL (3.5-10.8)
[2021-07-30 06:17] LABS: INR 1.27 (0.86-1.15)
[2021-07-30 06:40] LABS: Urine Appearance Clear; Urine Bilirubin Negative (Negative); Urine Blood Negative (Negative); Urine Color Yellow; Urine Glucose Negative (Negative); Urine Ketones 1+ (Negative); Urine Nitrite Negative (Negative); Urine Protein Negative (Negative); Urine Specific Gravity 1.023 (1.002-1.030); Urine Urobilinogen Negative (Negative)
[2021-07-30 06:43] LABS: Calcium 8.6 mg/dL (8.6-10.3); Potassium 4.6 mmol/L (3.5-5.0)
[2021-07-30] MEDS: Carbidopa/Levodop 25/100 MG TAB PO SCH ×3 (08:49→22:45)
[2021-07-30] MEDS: Multivitamins/Minerals TAB PO SCH (08:54)
[2021-07-30] MEDS ORDERED: NS 0.9% 1000 ml BAG 1,000 ML IV SCH (14:00)
[2021-07-30] MEDS ORDERED: ceFAZolin 2 GM in NS PREMIX 2 GM/100 ML BAG IVPB ONE (14:00)
[2021-07-30] MEDS ORDERED: fentaNYL 250 mcg/5 ml 50 MCG/ML 5 ml VIAL (250 MCG) ONE (15:15)
[2021-07-30] MEDS ORDERED: Propofol 10 MG/ML 20 ML BTL ONE (15:15)
[2021-07-30] MEDS ORDERED: Lidocaine 2% PF 5 ML VIAL ONE (15:15)
[2021-07-30] MEDS ORDERED: Rocuronium 50 mg VIAL 10 mg/ml 5 ml VIAL (50 mg) ONE (15:15)
[2021-07-30] MEDS ORDERED: EPHEDrine (Pressors) 50 MG/ML VIAL ONE (15:15)
[2021-07-30] MEDS ORDERED: Sterile Water for Inj 10 ML ONE (15:16)
[2021-07-30] MEDS ORDERED: ceFAZolin VIAL VIAL ONE (16:24)
[2021-07-30] MEDS ORDERED: Prochlorperazine 5 mg/ml 2 ml VIAL (10 mg) IV PRN (17:25)
[2021-07-30] MEDS ORDERED: fentaNYL 100 mcg/2 ml 50 MCG/ML VIAL IV PRN (17:25)
[2021-07-30] MEDS ORDERED: oxyCODONE/Acetamin 5/325 mg TAB PO PRN (17:25)
[2021-07-30] MEDS ORDERED: Naloxone 0.4 mg VIAL 0.4 mg/ml 1 ml VIAL IV PRN (17:25)
[2021-07-30] MEDS ORDERED: HYDROcodone/ACETAMIN 5/325 mg TAB PO PRN (17:25)
[2021-07-30] MEDS ORDERED: fentaNYL 100 mcg/2 ml 50 MCG/ML VIAL ONE (19:43)
[2021-07-30] MEDS ORDERED: oxyCODONE/Acetamin 5/325 mg TAB ONE (19:43)
[2021-07-31] MEDS: ceFAZolin 1 GM X 3 DOSES POST-OP Q8H (AddVan) IVPB SCH ×3 (00:06→17:15)
[2021-07-31] MEDS ORDERED: Enoxaparin 40 MG/0.4 ML SYR SUBCUT SCH (09:00)
[2021-07-31 09:16] LABS: ABS Lymphocytes 2.3 10^3/ul (1.0-4.8); ABS Monocytes 0.7 10^3/ul (0-0.8); ABS Neutrophils 6.4 10^3/ul (1.5-7.7); Eosinophil % 0.1 %; Hematocrit 23 % (42-52); Hemoglobin 7.9 g/dL (14.0-18.0); Lymphocyte % 24.6 %; Mean Corpuscular HGB Conc 34 g/dL (31-36); Mean Corpuscular Hemoglobin 31 pg (27-31); Mean Corpuscular Volume 91 fL (80-94); Mean Platelet Volume 8.1 fL (7.4-10.4); Platelet Count 152 10^3/uL (150-450); Red Blood Count 2.57 10^6 /uL (4.18-5.48); Red Cell Distribution Width 14 % (10-15); White Blood Count 9.4 10^3/uL (3.5-10.8)
[2021-07-31 09:32] LABS: Calcium 7.9 mg/dL (8.6-10.3); Magnesium 1.7 mg/dL (1.9-2.7); Potassium 4.5 mmol/L (3.5-5.0)
[2021-07-31] MEDS: Multivitamins/Minerals TAB PO SCH (09:49)
[2021-07-31] MEDS: Carbidopa/Levodop 25/100 MG TAB PO SCH ×3 (09:49→21:26)
[2021-07-31] MEDS ORDERED: Magnesium Hydroxide LIQ 30 ML UDC PO PRN (11:44)
[2021-07-31] MEDS ORDERED: LORazepam 2 mg VIAL 1 ml IV PUSH ONE (19:13)
[2021-07-31] MEDS ORDERED: Lorazepam PYXIS KEY PRN (19:13)
[2021-07-31] MEDS ORDERED: Lorazepam PYXIS KEY ONE (19:17)
[2021-07-31] MEDS ORDERED: LORazepam 2 mg VIAL 1 ml ONE (19:17)
[2021-07-31 20:26] LABS: Urine Appearance Cloudy; Urine Bilirubin Negative (Negative); Urine Blood Negative (Negative); Urine Color Yellow; Urine Glucose Negative (Negative); Urine Ketones Trace (Negative); Urine Nitrite Negative (Negative); Urine Protein Negative (Negative); Urine Specific Gravity 1.021 (1.002-1.030); Urine Urobilinogen Negative (Negative)
[2021-08-01 06:58] LABS: ABS Eosinophils 0.1 10^3/ul (0-0.6); ABS Lymphocytes 1.7 10^3/ul (1.0-4.8); ABS Monocytes 0.4 10^3/ul (0-0.8); Eosinophil % 1.9 %; Hematocrit 19 % (42-52); Hemoglobin 6.5 g/dL (14.0-18.0); Mean Corpuscular HGB Conc 34 g/dL (31-36); Mean Corpuscular Hemoglobin 31 pg (27-31); Mean Corpuscular Volume 91 fL (80-94); Nucleated Red Blood Cells % 0.2; Platelet Count 120 10^3/uL (150-450); Red Blood Count 2.09 10^6 /uL (4.18-5.48); Red Cell Distribution Width 15 % (10-15); White Blood Count 5.2 10^3/uL (3.5-10.8)
[2021-08-01 07:15] LABS: Potassium 4.5 mmol/L (3.5-5.0)
[2021-08-01] MEDS: Multivitamins/Minerals TAB PO SCH (08:22)
[2021-08-01 08:27] LABS: ABS Eosinophils 0.1 10^3/ul (0-0.6); ABS Lymphocytes 1.5 10^3/ul (1.0-4.8); ABS Monocytes 0.5 10^3/ul (0-0.8); ABS Neutrophils 3.2 10^3/ul (1.5-7.7); Eosinophil % 1.5 %; Hematocrit 19 % (42-52); Hemoglobin 6.5 g/dL (14.0-18.0); Mean Corpuscular HGB Conc 35 g/dL (31-36); Mean Corpuscular Hemoglobin 31 pg (27-31); Mean Corpuscular Volume 90 fL (80-94); Mean Platelet Volume 7.7 fL (7.4-10.4); Nucleated Red Blood Cells % 0.1; Platelet Count 119 10^3/uL (150-450); Red Blood Count 2.08 10^6 /uL (4.18-5.48); Red Cell Distribution Width 15 % (10-15); White Blood Count 5.3 10^3/uL (3.5-10.8)
[2021-08-01 08:41] LABS: Activated Partial Thrombo Time 24.6 seconds (26.0-38.0); INR 1.14 (0.86-1.15)
[2021-08-01] MEDS: Carbidopa/Levodop 25/100 MG TAB PO SCH ×3 (09:25→21:11)
[2021-08-01] MEDS: Heparin 5000 UNITS/ML 1 mL VIAL SUBCUT SCH ×3 (09:26→21:12)
[2021-08-01 14:56] LABS: ABS Eosinophils 0.1 10^3/ul (0-0.6); ABS Lymphocytes 1.7 10^3/ul (1.0-4.8); ABS Monocytes 0.5 10^3/ul (0-0.8); ABS Neutrophils 3.5 10^3/ul (1.5-7.7); Eosinophil % 0.9 %; Hematocrit 21 % (42-52); Hemoglobin 7.1 g/dL (14.0-18.0); Lymphocyte % 29.4 %; Mean Corpuscular HGB Conc 34 g/dL (31-36); Mean Corpuscular Hemoglobin 31 pg (27-31); Mean Corpuscular Volume 90 fL (80-94); Nucleated Red Blood Cells % 0.1; Platelet Count 132 10^3/uL (150-450); Red Blood Count 2.28 10^6 /uL (4.18-5.48); Red Cell Distribution Width 15 % (10-15); White Blood Count 5.8 10^3/uL (3.5-10.8)
[2021-08-01 21:03] LABS: ABS Eosinophils 0.1 10^3/ul (0-0.6); ABS Lymphocytes 2.2 10^3/ul (1.0-4.8); ABS Monocytes 0.7 10^3/ul (0-0.8); ABS Neutrophils 3.4 10^3/ul (1.5-7.7); Hematocrit 25 % (42-52); Hemoglobin 8.1 g/dL (14.0-18.0); Lymphocyte % 34.8 %; Mean Corpuscular HGB Conc 33 g/dL (31-36); Mean Corpuscular Hemoglobin 31 pg (27-31); Mean Corpuscular Volume 96 fL (80-94); Nucleated Red Blood Cells % 0.2; Platelet Count 114 10^3/uL (150-450); Red Blood Count 2.59 10^6 /uL (4.18-5.48); Red Cell Distribution Width 15 % (10-15); White Blood Count 6.4 10^3/uL (3.5-10.8)
[2021-08-02] MEDS: Heparin 5000 UNITS/ML 1 mL VIAL SUBCUT SCH ×3 (05:43→21:19)
[2021-08-02 07:38] LABS: ABS Eosinophils 0.1 10^3/ul (0-0.6); ABS Lymphocytes 1.7 10^3/ul (1.0-4.8); ABS Monocytes 0.4 10^3/ul (0-0.8); ABS Neutrophils 2.2 10^3/ul (1.5-7.7); Eosinophil % 2.2 %; Hematocrit 19 % (42-52); Hemoglobin 6.4 g/dL (14.0-18.0); Mean Corpuscular HGB Conc 34 g/dL (31-36); Mean Corpuscular Hemoglobin 31 pg (27-31); Mean Corpuscular Volume 91 fL (80-94); Mean Platelet Volume 8.1 fL (7.4-10.4); Nucleated Red Blood Cells % 0.1; Platelet Count 128 10^3/uL (150-450); Red Blood Count 2.05 10^6 /uL (4.18-5.48); Red Cell Distribution Width 15 % (10-15); White Blood Count 4.4 10^3/uL (3.5-10.8)
[2021-08-02 07:40] LABS: Potassium 4.2 mmol/L (3.5-5.0)
[2021-08-02] MEDS: Carbidopa/Levodop 25/100 MG TAB PO SCH ×3 (08:29→21:15)
[2021-08-02] MEDS: Multivitamins/Minerals TAB PO SCH (08:29)
[2021-08-02 16:00] LABS: Hematocrit 23 % (42-52)
[2021-08-03] MEDS: Heparin 5000 UNITS/ML 1 mL VIAL SUBCUT SCH ×3 (06:28→22:20)
[2021-08-03 06:47] LABS: ABS Eosinophils 0.1 10^3/ul (0-0.6); ABS Lymphocytes 1.7 10^3/ul (1.0-4.8); ABS Monocytes 0.4 10^3/ul (0-0.8); ABS Neutrophils 1.8 10^3/ul (1.5-7.7); Eosinophil % 2.5 %; Hematocrit 21 % (42-52); Hemoglobin 7.5 g/dL (14.0-18.0); Lymphocyte % 42.3 %; Mean Corpuscular HGB Conc 35 g/dL (31-36); Mean Corpuscular Hemoglobin 32 pg (27-31); Mean Corpuscular Volume 90 fL (80-94); Mean Platelet Volume 8.1 fL (7.4-10.4); Platelet Count 147 10^3/uL (150-450); Red Blood Count 2.37 10^6 /uL (4.18-5.48); Red Cell Distribution Width 15 % (10-15)
[2021-08-03 07:02] LABS: Calcium 8.4 mg/dL (8.6-10.3)
[2021-08-03] MEDS: Multivitamins/Minerals TAB PO SCH (10:16)
[2021-08-03] MEDS: Carbidopa/Levodop 25/100 MG TAB PO SCH ×3 (10:16→20:47)
[2021-08-04 04:28] LABS: ABS Eosinophils 0.1 10^3/ul (0-0.6); ABS Lymphocytes 2.1 10^3/ul (1.0-4.8); ABS Monocytes 0.4 10^3/ul (0-0.8); ABS Neutrophils 1.6 10^3/ul (1.5-7.7); Eosinophil % 2.8 %; Hematocrit 22 % (42-52); Hemoglobin 7.4 g/dL (14.0-18.0); Lymphocyte % 48.8 %; Mean Corpuscular HGB Conc 34 g/dL (31-36); Mean Corpuscular Hemoglobin 31 pg (27-31); Mean Corpuscular Volume 90 fL (80-94); Mean Platelet Volume 7.4 fL (7.4-10.4); Nucleated Red Blood Cells % 0.6; Platelet Count 179 10^3/uL (150-450); Red Blood Count 2.42 10^6 /uL (4.18-5.48); Red Cell Distribution Width 15 % (10-15); White Blood Count 4.2 10^3/uL (3.5-10.8)
[2021-08-04 04:56] LABS: Calcium 8.6 mg/dL (8.6-10.3); Potassium 4.1 mmol/L (3.5-5.0)
[2021-08-04] MEDS: Heparin 5000 UNITS/ML 1 mL VIAL SUBCUT SCH ×3 (06:28→22:54)
[2021-08-04] MEDS: Multivitamins/Minerals TAB PO SCH (08:41)
[2021-08-04] MEDS: Carbidopa/Levodop 25/100 MG TAB PO SCH ×3 (08:42→19:38)
[2021-08-05 05:43] LABS: Hematocrit 23 % (42-52); Hemoglobin 7.9 g/dL (14.0-18.0); Mean Corpuscular HGB Conc 34 g/dL (31-36); Mean Corpuscular Hemoglobin 31 pg (27-31); Mean Corpuscular Volume 91 fL (80-94); Mean Platelet Volume 7.3 fL (7.4-10.4); Platelet Count 209 10^3/uL (150-450); Red Blood Count 2.53 10^6 /uL (4.18-5.48); Red Cell Distribution Width 15 % (10-15); White Blood Count 4.8 10^3/uL (3.5-10.8)
[2021-08-05] MEDS: Heparin 5000 UNITS/ML 1 mL VIAL SUBCUT SCH (06:07)
[2021-08-05 08:17] VITALS: BP 147/68
[2021-08-05] MEDS: Carbidopa/Levodop 25/100 MG TAB PO SCH (09:02)
[2021-08-05] MEDS: Multivitamins/Minerals TAB PO SCH (09:08)
== END 2021-08-05 09:45 | DRG 481 ==
LOC: ED 18:45 → EDHOLD 22:04 → OR 07-30 16:11 → SUATTDRO 07-30 20:04 → SSU 07-30 20:04
PROVIDERS: ADMIT Internal Medicine; ATTEND Internal Medicine

== ENCOUNTER 2021-08-05 08:45 | Inpatient (IN) ==
[2021-08-05] MEDS ORDERED: Magnesium Hydroxide LIQ 30 ML UDC PO PRN (10:17)
[2021-08-05] MEDS ORDERED: Senna TAB 8.6 mg TAB PO PRN (10:17)
[2021-08-05] MEDS ORDERED: Al Hydrox/Mg Hydrox/Simet LIQ 30 ML UDC PO PRN (10:17)
[2021-08-05] MEDS: Carbidopa/Levodop 25/100 MG TAB PO SCH ×2 (12:32→19:15)
[2021-08-05] MEDS: Heparin 5000 UNITS/ML 1 mL VIAL SUBCUT SCH ×2 (14:00→21:03)
[2021-08-06] MEDS: Heparin 5000 UNITS/ML 1 mL VIAL SUBCUT SCH ×3 (05:09→21:48)
[2021-08-06 07:45] LABS: Hematocrit 23 % (42-52); Hemoglobin 7.7 g/dL (14.0-18.0); Mean Corpuscular HGB Conc 34 g/dL (31-36); Mean Corpuscular Hemoglobin 31 pg (27-31); Mean Corpuscular Volume 92 fL (80-94); Mean Platelet Volume 7.2 fL (7.4-10.4); Platelet Count 223 10^3/uL (150-450); Red Blood Count 2.46 10^6 /uL (4.18-5.48); Red Cell Distribution Width 16 % (10-15)
[2021-08-06 07:55] LABS: Albumin/Globulin Ratio 1.1 (1-3); Calcium 8.5 mg/dL (8.6-10.3); Globulin 2.7 g/dL (2-4); Potassium 4.2 mmol/L (3.5-5.0); Total Bilirubin 1.1 mg/dL (0.2-1.0); Total Protein 5.7 g/dL (6.4-8.9)
[2021-08-06] MEDS: Multivitamins/Minerals TAB PO SCH (08:06)
[2021-08-06] MEDS: Carbidopa/Levodop 25/100 MG TAB PO SCH ×3 (08:08→18:33)
[2021-08-06 09:32] LABS: ABS Eosinophils 0.2 10^3/ul (0-0.6); ABS Lymphocytes 2.1 10^3/ul (1.0-4.8); ABS Monocytes 0.5 10^3/ul (0-0.8); ABS Neutrophils 2.3 10^3/ul (1.5-7.7); Eosinophil % 3.2 %; Lymphocyte % 41.4 %; Nucleated Red Blood Cells % 0.1
[2021-08-06 11:10] LABS: Magnesium 1.8 mg/dL (1.9-2.7)
[2021-08-06] MEDS ORDERED: Polyethylene Glycol 3350 17 GM PACKET PO ONE (13:32)
[2021-08-06] MEDS ORDERED: Polyethylene Glycol 3350 17 GM PACKET PO SCH (21:00)
[2021-08-07] MEDS: Heparin 5000 UNITS/ML 1 mL VIAL SUBCUT SCH ×3 (04:37→21:18)
[2021-08-07] MEDS: Carbidopa/Levodop 25/100 MG TAB PO SCH ×3 (09:07→21:08)
[2021-08-07] MEDS: Polyethylene Glycol 3350 17 GM PACKET PO SCH (09:08)
[2021-08-07] MEDS: Multivitamins/Minerals TAB PO SCH (09:08)
[2021-08-08] MEDS: Heparin 5000 UNITS/ML 1 mL VIAL SUBCUT SCH ×3 (06:09→22:33)
[2021-08-08] MEDS: Carbidopa/Levodop 25/100 MG TAB PO SCH ×3 (08:29→18:47)
[2021-08-08] MEDS: Multivitamins/Minerals TAB PO SCH (08:31)
[2021-08-08] MEDS: Polyethylene Glycol 3350 17 GM PACKET PO SCH (08:32)
[2021-08-08] MEDS: Senna TAB 8.6 mg TAB PO SCH (22:32)
[2021-08-09] MEDS: Heparin 5000 UNITS/ML 1 mL VIAL SUBCUT SCH ×3 (05:51→21:23)
[2021-08-09] MEDS: Polyethylene Glycol 3350 17 GM PACKET PO SCH (07:24)
[2021-08-09] MEDS: Carbidopa/Levodop 25/100 MG TAB PO SCH ×3 (07:25→18:57)
[2021-08-09] MEDS: Multivitamins/Minerals TAB PO SCH (07:25)
[2021-08-09] MEDS: Senna TAB 8.6 mg TAB PO SCH (21:23)
[2021-08-10] MEDS: Heparin 5000 UNITS/ML 1 mL VIAL SUBCUT SCH ×3 (05:16→21:01)
[2021-08-10] MEDS: Multivitamins/Minerals TAB PO SCH (08:46)
[2021-08-10] MEDS: Carbidopa/Levodop 25/100 MG TAB PO SCH ×3 (08:46→18:53)
[2021-08-10] MEDS: Polyethylene Glycol 3350 17 GM PACKET PO SCH (08:47)
[2021-08-10] MEDS: Senna TAB 8.6 mg TAB PO SCH (21:01)
[2021-08-11] MEDS: Heparin 5000 UNITS/ML 1 mL VIAL SUBCUT SCH ×3 (05:04→21:20)
[2021-08-11] MEDS: Carbidopa/Levodop 25/100 MG TAB PO SCH ×3 (08:22→18:57)
[2021-08-11] MEDS: Multivitamins/Minerals TAB PO SCH (08:23)
[2021-08-11] MEDS: Polyethylene Glycol 3350 17 GM PACKET PO SCH (08:23)
[2021-08-11] MEDS: Senna TAB 8.6 mg TAB PO SCH (19:00)
[2021-08-12] MEDS: Heparin 5000 UNITS/ML 1 mL VIAL SUBCUT SCH ×3 (06:29→22:18)
[2021-08-12] MEDS: Polyethylene Glycol 3350 17 GM PACKET PO SCH (08:14)
[2021-08-12] MEDS: Multivitamins/Minerals TAB PO SCH (08:14)
[2021-08-12] MEDS: Carbidopa/Levodop 25/100 MG TAB PO SCH ×3 (08:14→19:00)
[2021-08-12] MEDS: Senna TAB 8.6 mg TAB PO SCH (20:48)
[2021-08-13] MEDS: Heparin 5000 UNITS/ML 1 mL VIAL SUBCUT SCH ×3 (05:41→22:00)
[2021-08-13 06:50] LABS: ABS Eosinophils 0.1 10^3/ul (0-0.6); ABS Lymphocytes 2.1 10^3/ul (1.0-4.8); ABS Monocytes 0.4 10^3/ul (0-0.8); ABS Neutrophils 2.3 10^3/ul (1.5-7.7); Eosinophil % 2.2 %; Hematocrit 25 % (42-52); Hemoglobin 8.4 g/dL (14.0-18.0); Lymphocyte % 43.2 %; Mean Corpuscular HGB Conc 34 g/dL (31-36); Mean Corpuscular Hemoglobin 32 pg (27-31); Mean Corpuscular Volume 94 fL (80-94); Mean Platelet Volume 6.8 fL (7.4-10.4); Nucleated Red Blood Cells % 0.1; Platelet Count 281 10^3/uL (150-450); Red Blood Count 2.66 10^6 /uL (4.18-5.48); Red Cell Distribution Width 17 % (10-15); White Blood Count 4.9 10^3/uL (3.5-10.8)
[2021-08-13 07:11] LABS: Albumin 3.2 g/dL (3.2-5.2); Albumin/Globulin Ratio 1.2 (1-3); Calcium 8.7 mg/dL (8.6-10.3); Globulin 2.7 g/dL (2-4); Potassium 4.2 mmol/L (3.5-5.0); Total Bilirubin 0.9 mg/dL (0.2-1.0); Total Protein 5.9 g/dL (6.4-8.9)
[2021-08-13] MEDS: Carbidopa/Levodop 25/100 MG TAB PO SCH ×3 (08:16→19:00)
[2021-08-13] MEDS: Polyethylene Glycol 3350 17 GM PACKET PO SCH (08:17)
[2021-08-13] MEDS: Multivitamins/Minerals TAB PO SCH (08:17)
[2021-08-13] MEDS: Senna TAB 8.6 mg TAB PO SCH (20:45)
[2021-08-14] MEDS: Heparin 5000 UNITS/ML 1 mL VIAL SUBCUT SCH ×3 (06:15→21:41)
[2021-08-14] MEDS: Carbidopa/Levodop 25/100 MG TAB PO SCH ×3 (07:45→19:34)
[2021-08-14] MEDS: Polyethylene Glycol 3350 17 GM PACKET PO SCH (08:38)
[2021-08-14] MEDS: Multivitamins/Minerals TAB PO SCH (08:38)
[2021-08-14] MEDS: Senna TAB 8.6 mg TAB PO SCH (19:33)
[2021-08-15] MEDS: Heparin 5000 UNITS/ML 1 mL VIAL SUBCUT SCH ×3 (04:30→22:11)
[2021-08-15] MEDS: Carbidopa/Levodop 25/100 MG TAB PO SCH ×3 (07:47→19:29)
[2021-08-15] MEDS: Polyethylene Glycol 3350 17 GM PACKET PO SCH (08:54)
[2021-08-15] MEDS: Multivitamins/Minerals TAB PO SCH (08:54)
[2021-08-15] MEDS: Senna TAB 8.6 mg TAB PO SCH (22:10)
[2021-08-16] MEDS: Heparin 5000 UNITS/ML 1 mL VIAL SUBCUT SCH ×3 (05:47→21:16)
[2021-08-16] MEDS: Multivitamins/Minerals TAB PO SCH (08:57)
[2021-08-16] MEDS: Carbidopa/Levodop 25/100 MG TAB PO SCH ×3 (09:02→19:02)
[2021-08-16] MEDS: Polyethylene Glycol 3350 17 GM PACKET PO SCH (09:03)
[2021-08-16] MEDS: Senna TAB 8.6 mg TAB PO SCH (21:17)
[2021-08-17] MEDS: Heparin 5000 UNITS/ML 1 mL VIAL SUBCUT SCH ×3 (05:46→21:38)
[2021-08-17] MEDS: Carbidopa/Levodop 25/100 MG TAB PO SCH ×3 (07:43→19:36)
[2021-08-17] MEDS: Polyethylene Glycol 3350 17 GM PACKET PO SCH (08:12)
[2021-08-17] MEDS: Multivitamins/Minerals TAB PO SCH (08:13)
[2021-08-17] MEDS: Senna TAB 8.6 mg TAB PO SCH (21:38)
[2021-08-18] MEDS: Heparin 5000 UNITS/ML 1 mL VIAL SUBCUT SCH ×3 (05:43→20:58)
[2021-08-18] MEDS: Carbidopa/Levodop 25/100 MG TAB PO SCH ×3 (08:02→19:09)
[2021-08-18] MEDS: Polyethylene Glycol 3350 17 GM PACKET PO SCH (08:06)
[2021-08-18] MEDS: Multivitamins/Minerals TAB PO SCH (08:06)
[2021-08-18] MEDS: Senna TAB 8.6 mg TAB PO SCH (20:58)
[2021-08-19] MEDS: Heparin 5000 UNITS/ML 1 mL VIAL SUBCUT SCH ×3 (05:14→20:36)
[2021-08-19] MEDS: Carbidopa/Levodop 25/100 MG TAB PO SCH ×3 (07:39→19:16)
[2021-08-19] MEDS: Polyethylene Glycol 3350 17 GM PACKET PO SCH (07:41)
[2021-08-19] MEDS: Multivitamins/Minerals TAB PO SCH (07:41)
[2021-08-19] MEDS: Senna TAB 8.6 mg TAB PO SCH (19:30)
[2021-08-20] MEDS: Heparin 5000 UNITS/ML 1 mL VIAL SUBCUT SCH ×3 (05:29→21:16)
[2021-08-20 06:39] LABS: ABS Eosinophils 0.1 10^3/ul (0-0.6); ABS Lymphocytes 1.8 10^3/ul (1.0-4.8); ABS Monocytes 0.4 10^3/ul (0-0.8); ABS Neutrophils 1.5 10^3/ul (1.5-7.7); Eosinophil % 2.6 %; Hematocrit 27 % (42-52); Hemoglobin 9.1 g/dL (14.0-18.0); Lymphocyte % 47.6 %; Mean Corpuscular HGB Conc 33 g/dL (31-36); Mean Corpuscular Hemoglobin 31 pg (27-31); Mean Corpuscular Volume 94 fL (80-94); Mean Platelet Volume 7.3 fL (7.4-10.4); Nucleated Red Blood Cells % 0.3; Platelet Count 238 10^3/uL (150-450); Red Blood Count 2.92 10^6 /uL (4.18-5.48); Red Cell Distribution Width 16 % (10-15); White Blood Count 3.8 10^3/uL (3.5-10.8)
[2021-08-20 06:56] LABS: Albumin 3.2 g/dL (3.2-5.2); Albumin/Globulin Ratio 1.1 (1-3); Calcium 8.8 mg/dL (8.6-10.3); Globulin 2.8 g/dL (2-4); Potassium 4.2 mmol/L (3.5-5.0); Total Bilirubin 0.8 mg/dL (0.2-1.0); eGFR CKD-EPI 91.4 (>60)
[2021-08-20] MEDS: Carbidopa/Levodop 25/100 MG TAB PO SCH ×3 (08:06→19:00)
[2021-08-20] MEDS: Multivitamins/Minerals TAB PO SCH (08:07)
[2021-08-20] MEDS: Polyethylene Glycol 3350 17 GM PACKET PO SCH (08:13)
[2021-08-20] MEDS: Senna TAB 8.6 mg TAB PO SCH (21:14)
[2021-08-21] MEDS: Heparin 5000 UNITS/ML 1 mL VIAL SUBCUT SCH ×3 (06:50→21:26)
[2021-08-21] MEDS: Carbidopa/Levodop 25/100 MG TAB PO SCH ×3 (07:51→18:59)
[2021-08-21] MEDS: Multivitamins/Minerals TAB PO SCH (07:52)
[2021-08-21] MEDS: Polyethylene Glycol 3350 17 GM PACKET PO SCH (08:18)
[2021-08-21] MEDS: Senna TAB 8.6 mg TAB PO SCH (21:24)
[2021-08-22] MEDS: Heparin 5000 UNITS/ML 1 mL VIAL SUBCUT SCH ×3 (04:55→20:47)
[2021-08-22] MEDS: Multivitamins/Minerals TAB PO SCH (07:33)
[2021-08-22] MEDS: Carbidopa/Levodop 25/100 MG TAB PO SCH ×3 (07:37→19:35)
[2021-08-22] MEDS: Polyethylene Glycol 3350 17 GM PACKET PO SCH (10:06)
[2021-08-22 14:44] LABS: Urine Appearance Turbid; Urine Bilirubin Negative (Negative); Urine Blood 1+ (Negative); Urine Color Amber; Urine Glucose Negative (Negative); Urine Ketones Negative (Negative); Urine Nitrite Positive (Negative); Urine Protein 1+(30 mg/dL) (Negative); Urine Specific Gravity 1.011 (1.002-1.030); Urine Urobilinogen Negative (Negative)
[2021-08-22 14:47] LABS: Urine Bacteria Absent (Absent); Urine Red Blood Cell 2+(6-10/hpf) (Absent); Urine White Blood Cell 3+(>20/hpf) (Absent)
[2021-08-22] MEDS: Senna TAB 8.6 mg TAB PO SCH (20:46)
[2021-08-23] MEDS: Heparin 5000 UNITS/ML 1 mL VIAL SUBCUT SCH ×3 (06:12→21:08)
[2021-08-23] MEDS: Carbidopa/Levodop 25/100 MG TAB PO SCH ×3 (08:06→18:42)
[2021-08-23] MEDS: Polyethylene Glycol 3350 17 GM PACKET PO SCH (08:07)
[2021-08-23] MEDS: Multivitamins/Minerals TAB PO SCH (08:07)
[2021-08-23] MEDS: Senna TAB 8.6 mg TAB PO SCH (20:20)
[2021-08-23] MEDS: Nitrofurantoin (macrocrystals) 50 mg CAP PO SCH (21:07)
[2021-08-24] MEDS: Heparin 5000 UNITS/ML 1 mL VIAL SUBCUT SCH ×3 (06:04→21:41)
[2021-08-24] MEDS: Carbidopa/Levodop 25/100 MG TAB PO SCH ×3 (07:32→18:57)
[2021-08-24] MEDS: Multivitamins/Minerals TAB PO SCH (09:04)
[2021-08-24] MEDS: Nitrofurantoin (macrocrystals) 50 mg CAP PO SCH (09:06)
[2021-08-24] MEDS: Polyethylene Glycol 3350 17 GM PACKET PO SCH (09:06)
[2021-08-24] MEDS: Senna TAB 8.6 mg TAB PO SCH (20:34)
[2021-08-24] MEDS: Sulfamethox/Trimethoprim DS TAB 800/160 mg PO SCH (20:35)
[2021-08-25] MEDS: Heparin 5000 UNITS/ML 1 mL VIAL SUBCUT SCH ×3 (07:25→22:32)
[2021-08-25] MEDS: Carbidopa/Levodop 25/100 MG TAB PO SCH ×3 (08:04→19:41)
[2021-08-25] MEDS: Polyethylene Glycol 3350 17 GM PACKET PO SCH (08:06)
[2021-08-25] MEDS: Multivitamins/Minerals TAB PO SCH (08:06)
[2021-08-25] MEDS: Sulfamethox/Trimethoprim DS TAB 800/160 mg PO SCH ×2 (08:06→19:43)
[2021-08-25] MEDS: Senna TAB 8.6 mg TAB PO SCH (19:43)
[2021-08-26] MEDS: Heparin 5000 UNITS/ML 1 mL VIAL SUBCUT SCH ×3 (05:30→21:29)
[2021-08-26] MEDS: Carbidopa/Levodop 25/100 MG TAB PO SCH ×3 (07:33→19:07)
[2021-08-26] MEDS: Multivitamins/Minerals TAB PO SCH (07:35)
[2021-08-26] MEDS: Polyethylene Glycol 3350 17 GM PACKET PO SCH (07:37)
[2021-08-26] MEDS: Sulfamethox/Trimethoprim DS TAB 800/160 mg PO SCH ×2 (07:37→21:29)
[2021-08-26] MEDS: Senna TAB 8.6 mg TAB PO SCH (21:29)
[2021-08-27] MEDS: Heparin 5000 UNITS/ML 1 mL VIAL SUBCUT SCH ×3 (05:41→21:05)
[2021-08-27 07:15] LABS: ABS Eosinophils 0.1 10^3/ul (0-0.6); ABS Lymphocytes 2.6 10^3/ul (1.0-4.8); ABS Monocytes 0.4 10^3/ul (0-0.8); Eosinophil % 1.8 %; Hematocrit 30 % (42-52); Hemoglobin 10.4 g/dL (14.0-18.0); Lymphocyte % 50.5 %; Mean Corpuscular HGB Conc 34 g/dL (31-36); Mean Corpuscular Hemoglobin 32 pg (27-31); Mean Corpuscular Volume 94 fL (80-94); Mean Platelet Volume 7.3 fL (7.4-10.4); Nucleated Red Blood Cells % 0.2; Platelet Count 204 10^3/uL (150-450); Red Blood Count 3.21 10^6 /uL (4.18-5.48); Red Cell Distribution Width 16 % (10-15); White Blood Count 5.1 10^3/uL (3.5-10.8)
[2021-08-27 07:33] LABS: Albumin 3.6 g/dL (3.2-5.2); Albumin/Globulin Ratio 1.2 (1-3); Calcium 9.3 mg/dL (8.6-10.3); Total Bilirubin 0.7 mg/dL (0.2-1.0); Total Protein 6.6 g/dL (6.4-8.9); eGFR CKD-EPI 57.7 (>60)
[2021-08-27 07:34] LABS: Potassium 5.6 mmol/L (3.5-5.0)
[2021-08-27] MEDS ORDERED: Sodium Polystyrene ORAL.SUSP 15 GM/60 ML BTL PO ONE ×2 (08:51→15:23)
[2021-08-27] MEDS: Polyethylene Glycol 3350 17 GM PACKET PO SCH (09:02)
[2021-08-27] MEDS: Carbidopa/Levodop 25/100 MG TAB PO SCH ×3 (09:04→19:09)
[2021-08-27] MEDS: Multivitamins/Minerals TAB PO SCH (09:05)
[2021-08-27 15:49] LABS: Calcium 8.9 mg/dL (8.6-10.3); Potassium 4.2 mmol/L (3.5-5.0); eGFR CKD-EPI 53.5 (>60)
[2021-08-27] MEDS: Senna TAB 8.6 mg TAB PO SCH (21:08)
[2021-08-28] MEDS: Heparin 5000 UNITS/ML 1 mL VIAL SUBCUT SCH ×3 (05:57→20:53)
[2021-08-28] MEDS: Multivitamins/Minerals TAB PO SCH (09:26)
[2021-08-28] MEDS: Polyethylene Glycol 3350 17 GM PACKET PO SCH (09:28)
[2021-08-28] MEDS: Carbidopa/Levodop 25/100 MG TAB PO SCH ×3 (09:32→19:40)
[2021-08-28 10:57] LABS: Calcium 9.3 mg/dL (8.6-10.3); Potassium 4.6 mmol/L (3.5-5.0); eGFR CKD-EPI 75.6 (>60)
[2021-08-28] MEDS: Senna TAB 8.6 mg TAB PO SCH (20:52)
[2021-08-29] MEDS: Heparin 5000 UNITS/ML 1 mL VIAL SUBCUT SCH ×3 (04:50→21:02)
[2021-08-29] MEDS: Carbidopa/Levodop 25/100 MG TAB PO SCH ×3 (07:59→19:39)
[2021-08-29] MEDS: Polyethylene Glycol 3350 17 GM PACKET PO SCH (08:02)
[2021-08-29] MEDS: Multivitamins/Minerals TAB PO SCH (08:02)
[2021-08-29] MEDS: Senna TAB 8.6 mg TAB PO SCH (21:04)
[2021-08-30] MEDS: Heparin 5000 UNITS/ML 1 mL VIAL SUBCUT SCH ×3 (05:31→23:07)
[2021-08-30] MEDS: Carbidopa/Levodop 25/100 MG TAB PO SCH ×3 (08:31→18:32)
[2021-08-30] MEDS: Polyethylene Glycol 3350 17 GM PACKET PO SCH (08:33)
[2021-08-30] MEDS: Multivitamins/Minerals TAB PO SCH (08:33)
[2021-08-30] MEDS: Senna TAB 8.6 mg TAB PO SCH (20:22)
[2021-08-31] MEDS: Heparin 5000 UNITS/ML 1 mL VIAL SUBCUT SCH (05:42)
[2021-08-31 05:49] VITALS: BP 156/73
[2021-08-31] MEDS: Polyethylene Glycol 3350 17 GM PACKET PO SCH (08:06)
[2021-08-31] MEDS: Multivitamins/Minerals TAB PO SCH (08:06)
[2021-08-31] MEDS: Carbidopa/Levodop 25/100 MG TAB PO SCH (08:07)
== END 2021-08-31 11:05 | DRG 560 ==
LOC: SUATTDRO 11:15 → PMRU 11:15
PROVIDERS: ADMIT Physical Medicine & Rehabilitation; ATTEND Physical Medicine & Rehabilitation